=== PATIENT | female | born 1945 | race Caucasian/White ===

== ENCOUNTER 2021-06-05 12:26 | Outpatient (CLI) | payer MEDICARE, SELFPAY ==
--- NOTE | 2021-06-05 | ECG_ITS ---
Measurements Intervals [place] Rate: 70 P: 51 ND: 180 QRS: 64 QRSD: 94 T: 22 QT: 382 QTc: 413 Interpretive Statements SINUS RHYTHM POSSIBLE LEFT ATRIAL ENLARGEMENT INCOMPLETE RIGHT BUNDLE BRANCH BLOCK MINIMAL Q WAVES- INFERIOR LEADS BORDERLINE ST-T WAVE ABNORMALITY- ANTEROLAT/INF LEADS BORDERLINE ECG Electronically Signed On 06-05-2021 13:45:41 ENTRY LEVEL ACCOUNTING CLERK by Demarcus Milner D.O.
--- NOTE | ~2021-06-05 | CT_ITS ---
EXAMINATION: CT LE RT wo con DATE: 06/05/2021 13:05 INDICATION: Unilateral primary osteoarthritis of the right knee TECHNIQUE: High resolution computed tomography (CT) of the right lower limb from the hip through the midfoot was performed without intravenous contrast. Additional sagittal and coronal reconstructions w ere performed. Automated exposure control and iterative reconstruction technique were employed. The d ose-length product was 1669.25 mGy-cm. COMPARISON: Radiographs dated 05/17/2021 FINDINGS: Alignment is normal. No fracture. Tricompartmental osteoarthritis at the right knee with moderate to severe joint space narrowing the medial compartment with subchondral formation and subarticular cystl elva changes along the anterior weightbearing medial femoral condyle. Mild joint space narrowing and s mall marginal osteophytes in the patellofemoral compartment and tiny marginal osteophytes at the late ral compartment. Moderate-sized right knee joint effusion. Scattered atherosclerotic calcifications e xtending caudally from the right common femoral artery and the arteries at the right calf. The uterus is not identified and has likely been surgically resected. Visualized portion of the pelvis is other kimbrough unremarkable. No pathologically enlarged right pelvic or inguinal lymphadenopathy. IMPRESSION: 1. Moderate to severe osteoarthritis at the medial compartment of the right knee. Reviewed, dictated and finalized at location A. LACE TIPPING MACHINE OPERATOR IMPRESSION: 1. Moderate to severe osteoarthritis at the medial compartment of the right kne e.
[2021-06-05 13:44] LABS: Hematocrit 38.4 % (37.0-47.0); Hemoglobin 12.5 g/dL (12.0-15.0)
[2021-06-05 13:52] LABS: Albumin Level 4.6 g/dL (3.5-5.1); Estimated Glomerular Filt Rate > 60; Glucose 126 mg/dL (65-110)
== END 2021-06-05 12:27 | disposition home or self-care (01) ==
PROVIDERS: PCP Internal Medicine Endocrinology, Diabetes & Metabolism; Visit Provider Orthopaedic Surgery
DX: Z01.818 Encounter for other preprocedural examination (principal); M25.561 Pain in right knee; M17.11 Unilateral primary osteoarthritis, right knee; E78.5 Hyperlipidemia, unspecified; Z92.89 Personal history of other medical treatment; I45.10 Unspecified right bundle-branch block; R50.9 Fever, unspecified
CPT/HCPCS: 36415; 73700; 82040; 82565; 82947; 85014; 85018; 93005

== ENCOUNTER 2021-07-18 08:10 | Outpatient (CLI) | payer MEDICARE, SELFPAY ==
[2021-07-18 09:31] LABS: Basophils Percent Auto 0.3 % (0.2-1.2); Eosinophils Absolute Auto 0.1 K/mm3 (0-0.3); Eosinophils Percent Auto 2.4 % (0-4.4); Hematocrit 38.9 % (37.0-47.0); Hemoglobin 12.7 g/dL (12.0-15.0); Immature Granulocyte Absolute 0.01 K/mm3 (0.00-0.031); Immature Granulocyte Percent A 0.2 % (0-0.5); Lymphocytes Absolute Auto 1.84 K/mm3 (0.9-3.2); Lymphocytes Percent Auto 31.5 % (18.3-44.2); Mean Corpuscular HGB Conc 32.6 g/dl (32-36); Mean Corpuscular Hemoglobin 29.7 pg (26-34); Mean Corpuscular Volume 91.1 fl (80-100); Mean Platelet Volume 10.2 fl (7.4-10.4); Monocytes Absolute Auto 0.4 K/mm3 (0.1-0.6); Monocytes Percent Auto 6.7 % (2.6-8.5); Neutrophils Absolute Auto 3.4 K/mm3 (1.3-6.7); Neutrophils Percent Auto 58.9 % (45.5-73.1); Platelet Count Result 231 k/mm3 (150-375); Red Blood Count 4.27 M/mm3 (4.2-5.4); Red Cell Distribution Width 12.4 % (11.5-14.5); White Blood Count 5.8 K/mm3 (4.5-10.0)
[2021-07-18 09:39] LABS: Urine Cotinine NEGATIVE
[2021-07-18 09:45] LABS: Albumin Level 4.9 g/dL (3.5-5.1)
[2021-07-18 09:48] LABS: Anion Gap 7 mmol/L (8-16); Blood Urea Nitrogen 21 mg/dL (7-17); Calcium 9.7 mg/dL (8.4-10.2); Carbon Dioxide 30 mmol/L (22-30); Chloride 103 mmol/L (98-107); Estimated Glomerular Filt Rate > 60; Glucose 107 mg/dL (65-110); Potassium 3.9 mmol/L (3.4-5.0); Sodium 140 mmol/L (137-145)
[2021-07-18 09:50] LABS: Hemoglobin A1C 5.7 % (<5.7)
== END 2021-07-18 08:11 | disposition home or self-care (01) ==
PROVIDERS: Anesthesiology; PCP Internal Medicine Endocrinology, Diabetes & Metabolism; Visit Provider Orthopaedic Surgery
DX: Z01.818 Encounter for other preprocedural examination (principal); M17.11 Unilateral primary osteoarthritis, right knee; E11.9 Type 2 diabetes mellitus without complications
CPT/HCPCS: 80048; 80307; 82040; 83036; 85025; 87081

== ENCOUNTER 2021-08-09 00:40 | Day surgery (SDC) | payer MEDICARE, SELFPAY ==
--- NOTE | 2021-07-18 07:48 | PC.NURSE ---
Report to the Outpatient Waiting Room, entrance under the green pavilion located off [facility], at time _0600_ on date _08/09/21_. OR Time: _0730_. - You and your visitor will be asked a series of questions to screen for COVID 19 for your protection. - A mask is required within the hospital. One visitor will be allowed to accompany the patient into the hospital. Patients visitor will be instructed to remain with patient at all times or leave the building. VISITING HOURS 10AM - 7PM, ONE VISITOR DAILY, USE BRISA ENTRANCE Preoperative COVID Testing Requirements: NONE Patients may have clear liquids (water, carbonated beverages, clear teas, apple juice) until 3 hours prior to surgery (0430 AM) with a maximum of 20 ounces. - No food from midnight until time of surgery Take the following medications with a SIP of water the morning of surgery: _TYLENOL IF NEEDED_ Medications to discontinue per Mick ELLISON - ASPIRIN, IBUPROFEN 7 DAYS PRIOR TO SURGERY, Date to take last dose 08/01/21_ Medications to discontinue per ANESTHESIA - ALL VITAMINS AND SUPPLEMENTS, Date to take last dose 08/05/21 Please no make-up, nail french, hairspray, perfume, deodorant, or body powder the day of surgery. No jewelry (including any body piercings) or valuables the day of surgery, leave them at home. Please take a shower or bath the night before, or the morning of, surgery with an antibacterial soap. Wear comfortable, loose fitting clothing. - Jewelry must be removed prior to entering the operating room. Rings and piercings that are not removed may be cut off. - The hospital will not accept responsibility for valuables. - Please leave all valuables, including medications, at home the day of surgery. If you are going home after surgery, a licensed truss driver helper must drive you home. - NO public transportation without another adult. - We recommend that an adult stay with you for 24 hours following discharge. - We also recommend that you do not drive, make important decision, drink alcoholic beverages, or take any drugs that were not prescribed by your health care provider for at least 24 hours after your discharge time. Follow any additional instructions given to you from your surgeon. TOTAL JOINT CLASS 07/18/21 @ 1000, [facility] LEVEL, USE BRISA ENTRANCE Instructions given to ____PT and asked if any additional questions and then verbalized understanding. Patient advised to call surgeon office or pre surgery nurse liaisonCHRISTOPH [phone] if any additional questions.
[2021-07-18 08:45] VITALS: BP 140/78; PULSE 82; RESP 18; TEMP 37.2; O2SAT 96; BMI 20.2
--- NOTE | 2021-07-18 08:57 | PC.NURSE ---
Report to the Outpatient Waiting Room, entrance under the green pavilion located off [facility], at time _0600_ on date _08/09/21_. OR Time: _0730_. - You and your visitor will be asked a series of questions to screen for COVID 19 for your protection. - A mask is required within the hospital. One visitor will be allowed to accompany the patient into the hospital. Patients visitor will be instructed to remain with patient at all times or leave the building. We will allow the visitor to come back to the postoperative area when patient is ready. Preoperative COVID Testing Requirements: NONE Patients may have clear liquids (water, carbonated beverages, clear teas, apple juice) until 3 hours prior to surgery (0430 AM) with a maximum of 20 ounces. - No food from midnight until time of surgery Take the following medications with a SIP of water the morning of surgery: _TYLENOL IF NEEDED_ Medications to discontinue per SHEPPERSON - ASPIRIN AND IBUPROFEN 7 DAYS PRIOR TO SURGERY, LAST DOSE TO BE TAKEN ON 08/01/21 Medications to discontinue per ANESTHESIA - ALL VITAMINS AND SUPPLEMENTS 3 DAYS PRIOR TO SURGERY, LAST DOSE TO BE TAKEN ON 08/05/21 Please no make-up, nail trinidadian, hairspray, perfume, deodorant, or body powder the day of surgery. No jewelry (including any body piercings) or valuables the day of surgery, leave them at home. Please take a shower or bath the night before, or the morning of, surgery with an antibacterial soap. Wear comfortable, loose fitting clothing. Children are encouraged to wear pajamas. - Jewelry must be removed prior to entering the operating room. Rings and piercings that are not removed may be cut off. - The hospital will not accept responsibility for valuables. - Please leave all valuables, including medications, at home the day of surgery. If you are going home after surgery, a licensed commercial relief driver must drive you home. - NO public transportation without another adult. - We recommend that an adult stay with you for 24 hours following discharge. - We also recommend that you do not drive, make important decision, drink alcoholic beverages, or take any drugs that were not prescribed by your health care provider for at least 24 hours after your discharge time. Follow any additional instructions given to you from your surgeon. TOTAL JOINT CLASS 07/18/21 @ [address] [place] [address] LOWER LEVEL, USE MAIN ENTRANCE Instructions given to __PT and asked if any additional questions and then verbalized understanding. Patient advised to call surgeon office or pre surgery nurse liaisonCHRISTOPH [phone] if any additional questions.
[2021-08-09] VITALS (14 sets, daily range): BP systolic 101–135; BP diastolic 61–86; PULSE 64–87; RESP 12–20; TEMP 36.1–37; O2SAT 95–100
--- NOTE | ~2021-08-09 | XR_ITS ---
EXAMINATION: XR knee RT 2V DATE: 08/09/2021 10:14 INDICATION: Postoperative evaluation following right total knee arthroplasty. TECHNIQUE: Anteroposterior and lateral views of the right knee were obtained. COMPARISON: 05/17/2021 FINDINGS: Right total knee arthroplasty without patellar resurfacing appears well seated and in near anatomic a lignment. No fractures identified. Expected postoperative subcutaneous and intra-articular gas. IMPRESSION: 1. Right total knee arthroplasty, negative for postoperative purposes. Reviewed, dictated and finalized at location B.
--- NOTE | 2021-08-09 07:02 | WPDANESEPPF ---
Anes - Initial Pre Proc Eval Procedure: Operation Date: 08/09/21 07:30 Proposed Procedures p Custom Right Total Knee Arthroplasty - Johnathan Ruiz MD Date/Time: 08/09/21 07:02 Surgeon: Johnathan Ruiz MD Pre Op Diagnosis: Prim O A Rt Knee Patient Data Age: 76 Gender: F Height: 1.59 m Weight: 49.9 kg Last Vital Signs Temp 37.2 C 07/18/21 08:45 Pulse 82 07/18/21 08:45 Resp 18 07/18/21 08:45 BP 140/78 07/18/21 08:45 Pulse Ox 96 07/18/21 08:45 Allergies Allergy/AdvReac Type Severity Reaction Status Date / Time metoclopramide [From Reglan] AdvReac Agitated Verified 08/09/21 06:50 Home Medications Medication Instructions Recorded Confirmed Type metformin 500 mg tablet,extended 500 mg PO HS 05/17/21 08/09/21 History release 24 hr omeprazole 20 mg capsule,delayed 20 mg PO QAM 05/17/21 08/09/21 History release rosuvastatin 5 mg tablet 5 mg HS 05/17/21 08/09/21 History acetaminophen [Tylenol Ex Str 1,000 mg PO Q6H PRN 07/18/21 08/09/21 History Rapid Release] ascorbic acid (vitamin C) [Vitamin 500 mg PO QAM 07/18/21 08/09/21 History C] aspirin [Aspir-81] 81 mg HS 07/18/21 08/09/21 History biotin 10,000 mcg PO QAM 07/18/21 08/09/21 History cholecalciferol (vitamin D3) 50 mcg PO QAM 07/18/21 08/09/21 History coenzyme Q10 [CoQ-10] 100 mg PO QAM 07/18/21 08/09/21 History cyanocobalamin (vitamin B-12) 1,000 mcg PO QAM 07/18/21 08/09/21 History ibuprofen 800 mg PO Q6H PRN 07/18/21 08/09/21 History multivitamin [Multi-Vitamin] 1 tablet PO QAM 07/18/21 08/09/21 History omega-3 fatty acids-vitamin E 1 cap QAM 07/18/21 08/09/21 History [Fish Oil] Patient hx anesthesia problems: none Family hx anesthesia problems: none Results Review: All pre-operative results and documents have been reviewed as part of the pre-operative evaluation. [facility] Past Medical History Medical History Arthritis Diabetes GERD (gastroesophageal reflux disease) Hyperlipidemia Osteoporosis Surgical History Surgical History History of arthroscopy of right knee (~2020) History of bladder surgery (~2002) History of hysterectomy (~2002) History of tonsillectomy Family History Family History Grandparent Carcinoma of colon Arthritis pain Social History Social History Smoking status: Never smoker Second hand tobacco smoke exposure: No Additional smoking assessment comments: PT DENIES ALL FORMS OF TOBACCO USE Alcohol intake: current Alcohol use details: STATES MAYBE 1 GLASS WINE/MONTH Substance use: never Substance use type: does not use Living arrangements: with family Spiritual care concerns: No Anes - Eval Final PreProcedure Day of Procedure 08/09/21 07:02 Patient weight: normal Heart: regular rate and rhythm Lungs: clear to auscultation Airway: Mallampati scale class II Neurological: alert and oriented Last oral intake: >/= 8 hours ASA classification: III Emergent: no Anesthetic plan: proceed Anesthesia type and monitoring: general LMA and standard monitoring Results Review: All pre-operative results and documents have been reviewed as part of the pre-operative evaluation. Informed Consent: The patient's anesthetic plan and its attendant risks and benefits were discussed with the patient/family/POA. Questions were solicited and answers provided to the satisfaction of the patient/family/POA.
[2021-08-09] MEDS: LACTATED RINGERS 1,000 ML 30 ML IV CONT ×2 (07:05→10:21)
[2021-08-09] MEDS: ACETAMINOPHEN 500 MG TABLET 1000 MG PO (07:08)
[2021-08-09] MEDS: TRANEXAMIC ACID 1,000MG/ISO100 1,000 MG/100 ML BAG 200 MG IVPB (07:09)
[2021-08-09 07:12] LABS: Glucose Point of Care 108 mg/dl (65-105)
[2021-08-09] MEDS: MIDAZOLAM HCL (*CRX) 2 MG/2 ML VIAL IV PUSH (07:15)
--- NOTE | 2021-08-09 07:22 | WPDHPUPDATE1 ---
History and Physical Update Update Date/Time: 08/09/21 07:22 History and Physical has been reviewed, including an updated exam of the patient. There are NO changes in the patient's condition. Risks, benefits, and alternatives have been discussed and questions answered. Patient agrees to proceed with procedure.
[2021-08-09] MEDS: ceFAZolin 2 GM/D5W 50 ML 2 GM/50 ML BAG IVPB ×3 (07:34→23:41)
--- NOTE | 2021-08-09 09:11 | WPDANESPNB ---
Anes - Peripheral Nerve Block Date/Time: 08/09/21 09:11 I have discussed with the patient/family/POA the placement of a peripheral nerve block for post-operative pain management, including associated risks, benefits, complications, and side effects. Alternative methods of post-operative analgesia were detailed. Questions were solicited and answers provided to the satisfaction of the patient/family/POA. Time-Out: A pre-procedural Time-Out was completed immediately before starting the procedure and confirmed: Patient Identification, Site, Procedure, Patient Position and the Availability of Requisite Equipment. Clinical Indications: Acute post-operative pain management requested by the operative surgeon. Nerve Block Insertion Note Anes-nerve block: adductor canal right Patient position: supine Skin prep: chlorhexidine Needle: 22 gauge, stimulating, insulated echogenic needle. Needle length: 80 mm Technique: ultrasound Technique comment: mid2mg [id number] Injectate: bupivacaine 0.5% with epi 5 mcg/ml (30ml no epi) Observations: tolerated well Complications: none Procedure start time:: 713 Procedure end time:: 720
[2021-08-09] MEDS: fentaNYL CITRATE INJ (*CRX) 100 MCG/2 ML VIAL 25 MCG IV PUSH ×6 (10:02→10:54)
[2021-08-09 10:41] LABS: Glucose Point of Care 157 mg/dl (65-105)
--- NOTE | 2021-08-09 11:22 | ADMGEN ---
This patient, Fanta Jimenez, was admitted to 2 Medical Room 243-01. Patient/family oriented to hospital policies and general routines including ID bracelet, bed and alarms, visiting hours, pain management, procedures, bathroom and other care routines, personal items, smoking policy, room service/diet, and visiting hours. Information on how to activate the Rapid Response Team has been discussed. Patient/Family are encouraged to report perceived risks to care and to ask questions if they do not understand what they are told or what they should do.
[2021-08-09] MEDS: oxyCODONE HCL (*CRX) 5 MG TAB IR PO (11:29)
[2021-08-09] MEDS: ONDANSETRON INJ 4 MG/2 ML VIAL IV PUSH (11:46)
[2021-08-09] MEDS: oxyCODONE HCL (*CRX) 5 MG TAB IR 10 MG PO ×2 (15:30→19:37)
--- NOTE | 2021-08-09 16:30 | W.PM.PROC2 ---
Procedure Note - Detailed Date of Procedure 08/09/21 Pre-op Diagnosis Prim O A Rt Knee Post-op Diagnosis Same Procedure Performed Total knee arthroplasty, right. Surgeon Johnathan Ruiz MD Hooker Operator Melissa Arthur PA-C Anesthesia General and Regional (Subsartorial block.) Description of Procedure Preoperative antibiotics were given. The limb was prepped and draped in the usual sterile fashion with a well-padded tourniquet high on the thigh. The limb was exsanguinated and the tourniquet inflated to 300 mmHg during exposure and cementation. A longitudinal incision was created just medial to the patella. A trivector approach to the knee was performed. Arthrotomy was taken down through the joint capsule. No significant releases were initially taken. The femur was exposed and the F1 jig was applied. The coring tool was used to remove the cartilage for the F2 jig to sit flush with the bone. The jig was pinned and the distal cut carefully taken. Caliper measurements confirmed appropriate bony resections according to the preoperative templated plan. The F4 cutting jig for the femur was applied, at the standard rotation. The AP and anterior chamfer cuts were taken. The F5 jig was applied and the posterior chamfer cuts were taken. The tibia was prepared using the T1 jig, after removing cartilage for the jig contact points. Proper alignment was checked with the alignment sabrina. The tibia was cut using the T1u guide. Gap balancing was performed. Gap measurements were taken and the knee was trialed. Excellent alignment and soft tissue balancing was confirmed. The posterior cruciate ligament was recessed along the proximal tibia. The patella appeared healthy and was denervated. Meniscal remnants were removed. The trial components were assembled. Excellent range of motion and proper soft tissue balancing were confirmed throughout the full range of motion. Patellar tracking was excellent. The knee was copiously irrigated periodically throughout the procedure. The real implants were cemented into position. Excess cement was carefully removed. The wound was closed in layers with interrupted #1 Vicryl suture, 2-0 strata fix suture, 0 strata fix suture, 2-0 strata fix suture. Steri-Strips placed on the skin with the knee flexed. Sterile bulky dressing applied. The patient was brought to the recovery room in stable condition. There were no complications. Physician assistant restaurant general manager, Melissa Arthur PA-C, required for surgery; including patient positioning, draping, tissue retraction, maintaining instrument position, cement removal, wound closure, and dressing placement. Implants Conformis Custom total knee arthroplasty. Cemented. Cruciate retaining. 6A insert. Estimated Blood Loss -50.0 Tourniquet Time 24 Drains No Complications No immediate complications Condition Stable Disposition PACU
[2021-08-09] MEDS: MELOXICAM 7.5 MG TABLET PO (17:25)
[2021-08-09] MEDS: ASPIRIN 81 MG ENTERIC TABLET PO (17:25)
[2021-08-09] MEDS: metFORMIN HCL XR 500 MG TAB.SR.24H PO (20:41)
[2021-08-09] MEDS: ROSUVASTATIN 5 MG TABLET PO (20:41)
[2021-08-10 00:52] VITALS: BP 108/59; PULSE 61; RESP 16; TEMP 36.8; O2SAT 97
[2021-08-10] MEDS: oxyCODONE HCL (*CRX) 5 MG TAB IR 10 MG PO ×3 (02:03→10:21)
[2021-08-10 06:46] VITALS: BP 142/72; PULSE 75; RESP 18; TEMP 36.5; O2SAT 99
--- NOTE | 2021-08-10 07:50 | PM.DS ---
DS: Admitting Diagnosis Discharge Date 08/10/21 Admitting Diagnosis OA knee Right DS: Discharge Diagnosis Discharge Diagnosis (1) Status post total right knee replacement: Code(s): Z96.651 - Presence of right artificial knee joint Status: Acute Assessment and Plan: Postop day 1: Right total knee arthroplasty. Patient tolerated procedure well. No complications. Pain manageable with pain medication. No numbness or tingling. We had a lengthy discussion regarding postoperative wound care, limitations, expectations, and exercises. Patient shows good understanding. He has had initial physical therapy and is tolerating it well. DVT prophylaxis: 81 mg baby aspirin b.i.d. for 14 days. Pain medication: Percocet. Meloxicam. Prednisone. Patient has followup appointment with Dr. Ruiz in 3 weeks. DS: Summary Hospital Course Reason for hospitalization: Total knee arthroplasty Hospital Course: Patient tolerated procedure well. Has had initial PT/OT. Status at Discharge Functional status at discharge: uses cane/walker Overall status at discharge: patient is progressing back to baseline Time Spent with Patient Time attestation: Total time spent providing and/or coordinating discharge services: Exam Narrative: Thin female. Resting comfortably in chair. Wearing compression socks bilaterally. Dressing intact with no drainage. Mild swelling. No ecchymosis. No erythema. No hematoma. Range of motion limited due to pain. 5-95. Quad functional. Calf nontender. Neurologic status intact. No varicosities. Distal pulses palpable. DS: Data Data Completed and Pending Labs on day of discharge: Labs from last 24 hours 08/09/21 10:38 POC Capillary Glucose 157 H Discharge Plan Discharge Patient Disposition: Home, Self-Care Discharge Instructions: See green discharge instructions and discharge medication sheet. Patient Instructions: Pain Management (DC), Joint Replacement Surgery (DC), Knee Replacement (DC) Follow-up/Referrals: Melissa Arthur PA [Physician Terrazzo Tile Setter] - Discharge Medications: New aspirin 81 mg tablet,delayed release (DR/EC) 81 mg PO BID 14 Days Qty: 28 RF: 0 prednisone 5 mg tablet 5 mg PO DAILY 21 Days Qty: 21 RF: 0 meloxicam 15 mg tablet 15 mg PO DAILY Qty: 30 RF: 0 oxycodone-acetaminophen 5-325 mg tablet 1 - 2 tablet PO Q4-6H MDD 6 PRN (Reason: pain) Qty: 30 RF: 0 Continued omeprazole 20 mg capsule,delayed release(DR/EC) 20 mg PO QAM RF: 0 metformin 500 mg tablet extended release 24 hr 500 mg PO HS RF: 0 rosuvastatin 5 mg tablet 5 mg HS RF: 0 multivitamin Tablet 1 tablet PO QAM RF: 0 acetaminophen 500 mg Tablet 1,000 mg PO Q6H PRN (Reason: Pain) RF: 0 ascorbic acid (vitamin C) [Vitamin C] 500 mg Tablet 500 mg PO QAM RF: 0 coenzyme Q10 [CoQ-10] 100 mg Capsule 100 mg PO QAM RF: 0 omega-3 fatty acids-vitamin E 1,000 mg Capsule 1 cap QAM RF: 0 cholecalciferol (vitamin D3) 50 mcg (2,000 unit) Capsule 50 mcg PO QAM RF: 0 cyanocobalamin (vitamin B-12) 1,000 mcg Capsule 1,000 mcg PO QAM RF: 0 biotin 5,000 mcg Tablet,Disintegrating 10,000 mcg PO QAM RF: 0 Held aspirin 81 mg Tablet,Delayed Release (Dr/Ec) 81 mg HS RF: 0 Hold Instructions: Resume on 08/24/21. Take twice daily for two weeks then resume 1 a day dose. ibuprofen 200 mg Tablet 800 mg PO Q6H PRN (Reason: Pain) RF: 0 Hold Instructions: Resume on 09/07/21. Hold while taking Meloxicam.
[2021-08-10] MEDS: ceFAZolin 2 GM/D5W 50 ML 2 GM/50 ML BAG IVPB (07:58)
[2021-08-10] MEDS: SENNA/DOCUSATE SODIUM TABLET 2 TAB PO (07:59)
[2021-08-10] MEDS: PANTOPRAZOLE 40 MG TABLET PO (07:59)
[2021-08-10] MEDS: ASPIRIN 81 MG ENTERIC TABLET PO (08:00)
[2021-08-10] MEDS: MELOXICAM 7.5 MG TABLET PO (08:00)
[2021-08-10 10:10] VITALS: BP 141/60; PULSE 86; RESP 17; TEMP 36.6; O2SAT 99
== END 2021-08-10 10:59 | disposition home or self-care (01) ==
LOC: ANHSURGERY 06:16 → ANH2MED 11:08
PROVIDERS: PCP Internal Medicine Endocrinology, Diabetes & Metabolism; Visit Provider Orthopaedic Surgery
PROC: (CPT 27447; principal; 2021-08-09 07:30)
DX: M17.11 Unilateral primary osteoarthritis, right knee (principal); G89.18 Other acute postprocedural pain; E11.9 Type 2 diabetes mellitus without complications; E78.5 Hyperlipidemia, unspecified; K21.9 Gastro-esophageal reflux disease without esophagitis; M81.0 Age-related osteoporosis without current pathological fracture; Z79.84 Long term (current) use of oral hypoglycemic drugs; Z79.82 Long term (current) use of aspirin
CPT/HCPCS: 27447; 64447; 73560; 82948; 97110; 97116; 97161; 97165; 97535; A9270; C1713; C1776; J0131; J0171; J0690; J1100; J1885; J2250; J2270; J2405; J2704; J2795; J3010; J7120

== ENCOUNTER 2021-09-18 11:00 | Outpatient (RCR) | payer MEDICARE, SELFPAY ==
--- NOTE | 2021-08-27 10:35 | PTOPEVAL ---
Thank you for referring Fanta Jimenez to [facility].? The patient is scheduled to be seen for therapy?2 x/week for 6 weeks. Please review, sign, date and return this plan of care KATE. I agree with and certify that the following plan of care is medically necessary. Referring Physician Date Attending Provider: JUAN Burnett Referring Provider: JUAN Burnett Diagnosis s/p right TKR Onset 08/09/21 Subjective Information She arrived with an AD. States Query Text:As Reported By Patient/ it slows her down too much to Family use. She is performing HEP 2x/day. She reports no significant limitations with daily task, walking, steps, ADL's. She has pain mainly at night. Increased pain with increased activities during the day. Reports her limping and stiffness has improved since surgery. Prior activities:dancing, pickle ball Pain Assessment Right Knee(s) Reported Pain Level 1 Pain Description Aching Pain Frequency Acute Lowest Pain Intensity 1 Greatest Pain Intensity 5 Pain Aggravating Factors Prolonged Position Lower Extremity Range of Motion General Lower Extremity Range of Motion Gross Lower Extremity Range of Motion right knee 5-120 dg (supine) Lower Extremity Muscle Strength Testing General Lower Extremity Strength Gross Lower Extremity Strength left hip flex: 4/5, ext: 4-5, abd: 4-5 left knee ext: 4/5, flex: 4/5 ankle DF: 5/5 Posture Standing Position Weight Distribution Decreased Wt.Bear on (R) Additional Posture Comments supine: anterior innominate noted right Palpation Assessment Palpation tenderness medial/lateral right knee joint line, healed incision, patella Special Tests-Lower Extremity Trendelenburg Sign Negative Left,Positive Right Hip Special Test Comments SLS: 28 sec left, 30 sec right Extremity Circumference Assessment Location Right Body Part Knee Site Descriptor (Biggers) inf patella Circumference (cm) 34 Noninvolved Side Circumference (cm) 30 Circumference Comments mid patella: right 37cm, left 35 cm sup patella: right 35 cm, left 3
--- NOTE | 2021-09-07 08:08 | PCPTNOTE ---
Patient called & cancelled scheduled appointment this date due to family emergency.
--- NOTE | 2021-09-18 11:46 | PTOPEVAL ---
Thank you for referring Fanta Jimenez to [facility].?Fatna Avendaño was referred to therapy due to s/p right TKR. She has attended 6 therapy visits from 08/27/21 to 09/18/21. As a result of skilled therapy services she demonstrates improved knee motion, improved LE strength, improved functional mobility, improved edema of knee region and improved pain level. WOMAC:18.75% impaired at eval and 11% impaired at update. Assessment: Fanta Avendaño has achieved/partially achieved her therapy goals at this time. She is compliant with her HEP and performing a general fitness program. Will DC skilled therapy services at this time with recommendations to cont with HEP, walking program and fitness program. Please review, sign, date and return this discharge summary KATE. I agree with and certify that the following plan of care is medically necessary. Referring Physician Date Attending Provider: JUAN Burnett Referring Provider: JUAN Burnett Diagnosis s/p right TKR Onset 08/09/21 Subjective Information She reports her knee pain has Query Text:As Reported By Patient/ significantly improved since Family last treatment. She tolerance with walking, ascending steps, and ADL's. Improved tolerance with shopping and community walking. She reports improved pain at night with ability to sleep. She c/o knee swelling and stiffness. She is alternating ice/heat at home. Pain Assessment Right Knee(s) Reported Pain Level 0 Pain Frequency Acute Lowest Pain Intensity 0 Greatest Pain Intensity 1 Lower Extremity Range of Motion Gross Lower Extremity Range of Motion right knee 0-130 dg (supine) Comments Lower Extremity Muscle Strength Testing Gross Lower Extremity Strength left hip flex: 4+/5, ext: 4+/5 abd: 4-/5 left knee ext: 5/5, flex: 5/5 ankle DF: 5/5 Palpation Assessment Palpation improved tenderness medial/ lateral right knee joint line, healed incision, patella mild scar restriction in inf aspect and tissue tenderness of pes ansurens region Special Tests-Lower Extremity Hip Special Tests Trendelenburg Sign Negative Left,Negative Right Hip Special Test Comments SLS: 28 sec left, 17 sec right Extremity Circumference Assessment Location Right Body Part Knee Site Descriptor ([place]) inf patella Circumference (cm) 32 Noninvolved Side Circumference (cm) 30 Circum
== END 2021-09-18 15:53 | disposition home or self-care (01) ==
LOC: ANHPT 11:00
PROVIDERS: PCP Internal Medicine Endocrinology, Diabetes & Metabolism; Referring Provider Physician Assistant Surgical; Visit Provider Physician Assistant Surgical
DX: Z47.1 Aftercare following joint replacement surgery (principal); Z96.651 Presence of right artificial knee joint
CPT/HCPCS: 97110; 97112; 97140; 97161

== ENCOUNTER 2021-09-25 16:51 | Emergency (ER) | payer MEDICARE, SELFPAY ==
[2021-09-25 17:01] VITALS: BP 123/76; PULSE 90; RESP 18; TEMP 36.3; O2SAT 98
--- NOTE | 2021-09-25 17:08 | ED.SKABFB ---
HPI - Skin/Abscess/Foreign Bdy General Chief complaint: Skin/Abscess/Foreign Body Stated complaint: rash Time Seen by Provider: 09/25/21 17:08 Source: patient Mode of arrival: ambulatory Limitations: no limitations History of Present Illness HPI narrative: Ms. Jimenez is a 76-year-old female patient presenting to the clinic today with complaints of a rash to her chest x1 to 2 days. She reports no new changes in the environment, medication, or foods. States that she has not changed her detergents. Has an itchy raised rash to the left side of her neck and to the anterior chest. She denies any pain. States that the rash itches. No one at home has the same rash. Related Data Home Medications Medication Instructions Recorded Confirmed metformin 500 mg tablet,extended 500 mg PO HS 05/17/21 08/29/21 release 24 hr omeprazole 20 mg capsule,delayed 20 mg PO QAM 05/17/21 08/29/21 release rosuvastatin 5 mg tablet 5 mg HS 05/17/21 08/29/21 acetaminophen 500 mg tablet 1,000 mg PO Q6H PRN Pain 07/18/21 08/29/21 aspirin 81 mg tablet,delayed 81 mg HS 07/18/21 08/29/21 release cholecalciferol (vitamin D3) 50 50 mcg PO QAM 07/18/21 08/29/21 mcg (2,000 unit) capsule coenzyme Q10 100 mg capsule 100 mg PO QAM 07/18/21 08/29/21 (CoQ-10) cyanocobalamin (vitamin B-12) 1,000 mcg PO QAM 07/18/21 08/29/21 1,000 mcg capsule ibuprofen 200 mg tablet 800 mg PO Q6H PRN Pain 07/18/21 08/29/21 multivitamin 1 tablet PO QAM 07/18/21 08/29/21 omega-3 fatty acids-vitamin E 1 cap QAM 07/18/21 08/29/21 1,000 mg capsule Allergies Allergy/AdvReac Type Severity Reaction Status Date / Time metoclopramide [From Reglan] AdvReac Agitated Verified 09/25/21 17:08 Review of Systems Review of Systems: Pertinent positives per HPI. Patient denies any fever, chills, headache, visual changes, dizziness, cough, runny nose, sore throat, shortness of breath, chest pain, palpitations, nausea, vomiting, diarrhea, constipation, abdominal pain, or any urinary issues. [facility] Past Medical History Medical History Arthritis Diabetes GERD (gastroesophageal reflux disease) Hyperlipidemia Osteoporosis Surgical History Surgical History History of arthroscopy of right knee (~2020) History of bladder surgery (~2002) History of hysterectomy (~2002) History of tonsillectomy History of total right knee replacement (~08/09/21) Conformis Family History Family History Grandparent Carcinoma of colon Arthritis pain Social History Social History Smoking status: Never smoker Second hand tobacco smoke exposure: No Additional smoking assessment comments: PT DENIES ALL FORMS OF TOBACCO USE Alcohol intake: never Alcohol use details: STATES MAYBE 1 GLASS WINE/MONTH Substance use: never Substance use type: does not use Spiritual care concerns: No Exam Narrative: General: Well-developed, well nourished, in no apparent distress Head: Normocephalic, atraumatic. Cardio: Regular rate and rhythm, s1 and s2 normal, no murmur appreciated. Resp: Clear to auscultation bilaterally, no rhonchi, rales, wheezing or rubs. Integumentary: [place], warm, and dry, intact without lesion, mildly raised, red, itchy, papular, semicircular rash without central clearing to the right side of her neck, right anterior chest Course Course Emergency Course: This electronic medical record was dictated using voice recognition software and may contain some grammatical errors. Level of Care: Express Care Visit Vital Signs Vital signs: Vital signs reviewed MDM - Skin/Abscess/Foreign Bdy MDM Narrative Medical decision making narrative: At the time of assessment patient is resting comfortably on the exam table. She has a itc
== END 2021-09-25 17:19 | disposition home or self-care (01) ==
PROVIDERS: Emergency Provider Nurse Practitioner Family; PCP Internal Medicine Endocrinology, Diabetes & Metabolism
DX: L30.9 Dermatitis, unspecified (principal); M19.90 Unspecified osteoarthritis, unspecified site; E11.9 Type 2 diabetes mellitus without complications; K21.9 Gastro-esophageal reflux disease without esophagitis; E78.5 Hyperlipidemia, unspecified; M81.0 Age-related osteoporosis without current pathological fracture; Z96.651 Presence of right artificial knee joint
CPT/HCPCS: 99213; G0463

== ENCOUNTER 2022-01-28 08:33 | Outpatient (CLI) | payer MEDICARE, SELFPAY ==
--- NOTE | ~2022-01-28 | MM_ITS ---
EXAMINATION: MM screening deyanira BI w germain HISTORY: Screening mammogram TECHNIQUE: Craniocaudal and mediolateral oblique 3-D tomosynthesis images were obtained and synthetic 2-D images were generated. CAD analysis was submitted and interpreted. COMPARISON: No prior mammogram is available for comparison at this institution. BREAST PARENCHYMAL COMPOSITION: The breasts are heterogeneously dense, which may obscure small masses . FINDINGS: There is no evidence of suspicious mass, calcification, or architectural distortion to sugg est malignancy in either breast. There has been no suspicious interval change. IMPRESSION: 1. No mammographic evidence of malignancy. 2. Recommend routine screening mammography in one year. BI-RADS Category 1: Negative Reviewed, dictated and finalized at location A.
== END 2022-01-28 08:34 | disposition home or self-care (01) ==
LOC: ANHIMG 08:35
PROVIDERS: PCP Internal Medicine Endocrinology, Diabetes & Metabolism; Visit Provider Internal Medicine Endocrinology, Diabetes & Metabolism
DX: Z12.31 Encounter for screening mammogram for malignant neoplasm of breast (principal)
CPT/HCPCS: 77063; 77067

== ENCOUNTER 2022-02-11 09:55 | Outpatient (CLI) | payer MEDICARE, SELFPAY ==
--- NOTE | ~2022-02-11 | DEXA_ITS ---
Bone Density Report Name: [place]O [facility] Age: 76 Sex: Female Ethnicity: White Date of : 1945 Indication: postmenopausal; screening for osteoporosis; hysterectomy; Referring Provider: HARMEET, ASIA Study: Bone densitometry was performed. Exam Date: February 11, 2022 Accession number: [id number] Bone Density: Region BMD T-score Z-score Classification AP Spine(L1-L4) 0.972 -0.7 1.7 Normal Femoral Neck (Left) 0.564 -2.6 -0.5 Osteoporosis Total Hip (Left) 0.723 -1.8 0.0 Osteopenia Femoral Neck (Right) 0.591 -2.3 -0.2 Osteopenia Total Hip (Right) 0.792 -1.2 0.6 Osteopenia Total Hip Mean 0.757 -1.5 0.3 Osteopenia World Health Organization criteria for BMD impression classify patients as: Normal (T-score at or above -1.0), Osteopenia (T-score between -1.0 and -2.5), or Osteoporosis (T-score at or below -2.5). 10-year Fracture Risk: FRAX not reported because: Some T-score for Spine Total or Hip Total or Femoral Neck at or below -2.5 Clinical Information Provided by Patient: Has used the following medications: Vitamin D Has the following medical conditions: Hysterectomy Patient maximum height was 54 Menopause Age: 56 Drinks caffeinated beverages Onset of menses at age 17 Number of children 3 Impression: The patient has osteoporosis, based on the Left Femoral Neck T-score. Discussion: INCREASED RISK OF FRACTURE. BONE DENSITY IS UNDESIRABLY LOW AT ONE OR MORE SKELETAL SITES, CONSISTENT WITH POSTMENOPAUSAL OSTEOPOROSIS. This patient's lowest T-score meets the World Health Organization's (WHO) criteria for osteoporosis at one or more sites (T-score -2.5 or below). In untreated patients, the risk of osteoporotic fracture increases approximately two-fold for each 1.0 SD decrease in T-score. Low bone density is not the only risk factor for fracture; also consider factors such as patient's age, frailty or poor health, risk of falling, risk of injury, previous osteoporotic fracture, family history of osteoporosis, cigarette smoking, low body weight, etc. Not everyone with low bone mineral density has osteoporosis; osteomalacia and other metabolic bone disorders should also be considered. Patients who have osteoporosis should be evaluated for specific diseases and conditions (secondary causes) that may cause or contribute to bone loss. The [place] [employer] Endocrinologists (AACE) and National Osteoporosis Foundation (NOF) recommend pharmacologic intervention for all postmenopausal women whose T-score is in this range. The patient should follow a healthful lifestyle (good nutrition with adequate calcium and vitamin D, and appropriate weight-bearing exercise). Follow-Up: Consider a repeat BMD and Vertebral Fracture Assessment (VFA) exam in 2 years or sooner if medically necessary,
== END 2022-02-11 09:56 | disposition home or self-care (01) ==
LOC: ANHIMG 09:56
PROVIDERS: PCP Internal Medicine Endocrinology, Diabetes & Metabolism; Visit Provider Nurse Practitioner Family
DX: Z78.0 Asymptomatic menopausal state (principal); M81.0 Age-related osteoporosis without current pathological fracture; M85.851 Other specified disorders of bone density and structure, right thigh; M85.852 Other specified disorders of bone density and structure, left thigh
CPT/HCPCS: 77080

== ENCOUNTER 2022-06-20 13:10 | Outpatient (CLI) | payer MEDICARE, SELFPAY ==
[2022-06-20 13:29] LABS: Basophils Percent Auto 0.2 % (0.2-1.2); Eosinophils Absolute Auto 0.2 K/mm3 (0-0.3); Hematocrit 39.4 % (37.0-47.0); Hemoglobin 12.8 g/dL (12.0-15.0); Immature Granulocyte Absolute 0.01 K/mm3 (0.00-0.031); Immature Granulocyte Percent A 0.2 % (0-0.5); Lymphocytes Absolute Auto 1.42 K/mm3 (0.9-3.2); Mean Corpuscular HGB Conc 32.5 g/dl (32-36); Mean Corpuscular Hemoglobin 29.5 pg (26-34); Mean Corpuscular Volume 90.8 fl (80-100); Mean Platelet Volume 9.7 fl (7.4-10.4); Monocytes Absolute Auto 0.3 K/mm3 (0.1-0.6); Monocytes Percent Auto 7.2 % (2.6-8.5); Neutrophils Absolute Auto 2.8 K/mm3 (1.3-6.7); Neutrophils Percent Auto 58.4 % (45.5-73.1); Platelet Count Result 219 k/mm3 (150-375); Red Blood Count 4.34 M/mm3 (4.2-5.4); Red Cell Distribution Width 12.5 % (11.5-14.5); White Blood Count 4.7 K/mm3 (4.5-10.0)
[2022-06-20 13:46] LABS: CRP 0.6 mg/dL (<1.0)
[2022-06-20 13:55] LABS: Erythrocyte Sedimentation Rate 14 mm/hr (0-20)
== END 2022-06-20 13:11 | disposition home or self-care (01) ==
PROVIDERS: PCP Internal Medicine Endocrinology, Diabetes & Metabolism; Visit Provider Orthopaedic Surgery
DX: M25.561 Pain in right knee (principal); Z96.651 Presence of right artificial knee joint; Z47.1 Aftercare following joint replacement surgery
CPT/HCPCS: 36415; 85025; 85652; 86140

== ENCOUNTER 2022-11-17 22:01 | Inpatient (IN) | payer MEDICARE, SELFPAY ==
[2022-11-17] VITALS (13 sets, daily range): BP systolic 130–158; BP diastolic 75–110; PULSE 67–104; RESP 13–28; TEMP 36.5; O2SAT 91–99
--- NOTE | ~2022-11-17 | XR_ITS ---
Supine portable views of the abdomen Clinical history: Small bowel obstruction COMPARISON: 11/18/2022 Findings: NG tube is in satisfactory position. Bowel gas pattern is nonspecific. No evidence for obst ruction or free air. No abnormal mass lesion or calcification is seen. Stable levoscoliosis of the eliezer mbar spine. Impression: NG tube in place. Nonspecific bowel gas pattern. Reviewed, dictated and finalized at location . Impression: NG tube in place. Nonspecific bowel gas pattern.
--- NOTE | ~2022-11-17 | XR_ITS ---
XR abdomen NG/feed tube rechec DATE: 11/18/2022 16:20 INDICATION: NG tube confirmation TECHNIQUE: Portable upright AP view on 11/18/2022 at 1618 hours COMPARISON: 11/18/2022 KUB at 1250 hours FINDINGS: The NG tube is unchanged in position, making a loop in the lower stomach and progressing ba ck into the gastric fundus. Heart size appears normal. The lungs appear clear. No pleural effusion or pulmonary vascular congesti on or pneumothorax is evident. Status post lower cervical spine surgical fusion. IMPRESSION: NG tube in stomach, not significant changed in position since earlier today Reviewed, dictated and finalized at Location A. Reviewed, dictated and finalized at location B. IMPRESSION: NG tube in stomach, not significant changed in position since [facility] today
--- NOTE | ~2022-11-17 | XR_ITS ---
EXAMINATION: XR sm bowel follow through WS DATE: 11/19/2022 10:19 INDICATION: Small bowel obstruction. TECHNIQUE: Oral contrast was administered, and a time course of radiographs of the abdomen was obtain ed. Fluoroscopy of the small bowel was performed. Fluoroscopy exposure time was 0.1 minutes. The tota l number of images was 5. COMPARISON: CT abdomen and pelvis 11/17/2022 FINDINGS: The nasogastric tube tip is in the stomach. There are no dilated loops of bowel. Transit time from th e stomach to proximal colon was approximately 15 minutes. IMPRESSION: 1. Nonobstructive bowel gas pattern. Reviewed, dictated and finalized at location A.
--- NOTE | ~2022-11-17 | XR_ITS ---
EXAM: XR abdomen NG/feed tube rechec DATE: 11/18/2022 17:31 HISTORY: NG tube confirmation . COMPARISON: Same date at 4:18 PM. FINDINGS: Partially visualized cervical fusion hardware. NG tube tip and side port project over the gastric fundus, the previous loop has been significantly reduced. Clear lung bases. Emphysematous reza nge. Normal upper abdominal bowel gas pattern. No organomegaly. No abnormal abdominal calcification. Lumbar scoliosis. Degenerative changes in the spine. IMPRESSION: NG tube, in good position. Reviewed, dictated and finalized at location K. IMPRESSION: NG tube, in good position.
--- NOTE | ~2022-11-17 | CT_ITS ---
CT of the Abdomen and Pelvis: Indication: Abdominal pain Technique: 2.5 mm axial scans were obtained through the abdomen and pelvis following intravenous adm inistration of 100 cc of Omnipaque 350. Dose reduction technique was used on this scan by utilizing a utomated exposure control and iterative reconstruction technique. The dose-length product (DLP) was 2 52.71 mGy-cm. Findings: Scans through the lung bases are unremarkable. The liver, spleen, pancreas, gallbladder, adrenals and kidneys are within normal limits. No evidence of aortic aneurysm. No lymphadenopathy. There are several mildly dilated small bowel loops in the left midabdomen, lateral to the descending colon. Images through the pelvis were performed. Urinary bladder unremarkable. Patient is post hysterectomy. No pelvic mass seen. No ascites. Impression: Suspected early or partial small bowel obstruction, with dilated small bowel loops in the left midabd omen, lateral to the descending colon. Position of small bowel loops lateral to the descending colon raises the possibility of internal transmesenteric hernia. Correlate clinically. Consider surgical co nsultation. Reviewed, dictated and finalized at location . Impression: Suspected early or partial small bowel obstruction, with dilated small bowel lo ops in the left midabdomen, lateral to the descending colon. Position of small bowel loops lateral to the descending colon raises the possibility of internal transmesenteric hernia. Correlate clinically. Consider surgical consultation.
--- NOTE | ~2022-11-17 | XR_ITS ---
Portable upright view of the abdomen Clinical history: NG tube placement Findings: NG tube in satisfactory position. Bowel gas pattern is nonspecific. No evidence for obstruc tion or free air. No abnormal mass lesion or calcification is seen. Osseous structures are intact. Impression: NG tube in satisfactory position. Reviewed, dictated and finalized at location . Impression: NG tube in satisfactory position.
[2022-11-17 22:24] LABS: Appearance Urine Clear (Clear); Basophils Percent Auto 0.4 % (0.2-1.2); Bilirubin Urine Negative (Negative); Blood Urine Negative (Negative); Color Urine Yellow (Yellow); Eosinophils Absolute Auto 0.4 K/mm3 (0-0.3); Eosinophils Percent Auto 3.3 % (0-4.4); Glucose Urine UA Negative (Negative); Hematocrit 41.6 % (37.0-47.0); Hemoglobin 13.6 g/dL (12.0-15.0); Immature Granulocyte Absolute 0.02 K/mm3 (0.00-0.031); Immature Granulocyte Percent A 0.2 % (0-0.5); Ketones Urine Negative (Negative); Leukocyte Esterase Ur Negative LEU/UL (Negative); Lymphocytes Percent Auto 29.7 % (18.3-44.2); Mean Corpuscular HGB Conc 32.7 g/dl (32-36); Mean Corpuscular Hemoglobin 29.6 pg (26-34); Mean Corpuscular Volume 90.6 fl (80-100); Mean Platelet Volume 10.2 fl (7.4-10.4); Monocytes Absolute Auto 0.9 K/mm3 (0.1-0.6); Monocytes Percent Auto 8.1 % (2.6-8.5); Neutrophils Absolute Auto 6.3 K/mm3 (1.3-6.7); Neutrophils Percent Auto 58.3 % (45.5-73.1); Nitrate Urine Negative (Negative); Platelet Count Result 270 k/mm3 (150-375); Protein Urine Negative (Negative); Red Blood Count 4.59 M/mm3 (4.2-5.4); Red Cell Distribution Width 12.5 % (11.5-14.5); Specific Grav Ur 1.004 (1.001-1.035); Urobilinogen Urine 0.2 mg/dL (<2.0); White Blood Count 10.8 K/mm3 (4.5-10.0); pH Urine 6.5 (5.0-9.0)
[2022-11-17 22:28] LABS: Add Urine Microscopic? NO
[2022-11-17 22:37] LABS: Lactic Acid Reflex 1.8 mmol/L (0.7-2.0)
[2022-11-17 22:38] LABS: Alanine Aminotransferase 23 U/L (6-35); Albumin Level 5.2 g/dL (3.5-5.1); Alkaline Phosphatase 102 U/L (38-126); Anion Gap 10 mmol/L (8-16); Aspartate Amino Transferase 31 U/L (14-36); Bilirubin,Total 0.4 mg/dL (0.2-1.3); Blood Urea Nitrogen 21 mg/dL (7-17); Calcium 10.3 mg/dL (8.4-10.2); Carbon Dioxide 29 mmol/L (22-30); Chloride 101 mmol/L (98-107); Estimated CRCL calculation 48 ml/min; Estimated Glomerular Filt Rate > 60; Glucose 144 mg/dL (65-110); Lipase 127 U/L (23-300); Potassium 4.7 mmol/L (3.4-5.0); Sodium 140 mmol/L (137-145)
[2022-11-17] MEDS: ONDANSETRON INJ 4 MG/2 ML VIAL IV PUSH (22:39)
[2022-11-17] MEDS: MORPHINE SULFATE (*CRX) 4 MG/ML INJ IV PUSH (22:39)
--- NOTE | 2022-11-17 22:47 | ED.ABDPAIN ---
HPI - Abdominal Pain General Chief Complaint: Abdominal Pain <Irene Watkins PA-C - Last Filed: 11/18/22 01:31> Stated Complaint: abdominal pain <AUDREY Ignacio Last Filed: 11/18/22 01:31> Time Seen by Provider: 11/17/22 22:14 <Irene Watkins PA-C - Last Filed: 11/18/22 01:31> Source: patient <AUDREY Ignacio Last Filed: 11/18/22 01:31> Mode of arrival: ambulatory <AUDREY Ignacio Last Filed: 11/18/22 01:31> Limitations: no limitations <AUDREY Ignacio Last Filed: 11/18/22 01:31> History of Present Illness HPI narrative: This is a 77-year-old female that presents to the emergency department for abdominal pain ongoing over the last several hours. Reports sharp abdominal pain associated with bloating. Reports she has history of diverticulitis with perforation. She has had a partial colectomy. She has also had several obstructions. Reports some nausea. Denies fever, vomiting, diarrhea, or dysuria. <Irene Watkins PA-C - Last Filed: 11/18/22 01:31> Related Data Home Medications: Home Medications Medication Instructions Recorded Confirmed omeprazole 20 mg capsule,delayed 20 mg PO QAM 05/17/21 11/18/22 release acetaminophen 500 mg tablet 1,000 mg PO Q6H PRN Pain 07/18/21 11/18/22 aspirin 81 mg tablet,delayed 81 mg DAILY 07/18/21 11/18/22 release cholecalciferol (vitamin D3) 50 50 mcg PO QAM 07/18/21 11/18/22 mcg (2,000 unit) capsule cyanocobalamin (vitamin B-12) 1,000 mcg PO QAM 07/18/21 11/18/22 1,000 mcg capsule ibuprofen 200 mg tablet 800 mg PO Q6H PRN Pain 07/18/21 11/18/22 multivitamin 1 tablet PO QAM 07/18/21 11/18/22 tramadol 50 mg tablet 50 mg PO Q6-8H PRN Pain 11/18/22 11/18/22 <Irene Watkins PA-C - Last Filed: 11/18/22 01:31> Allergies/Adverse Reactions: Allergies Allergy/AdvReac Type Severity Reaction Status Date / Time metoclopramide [From Reglan] AdvReac Agitated Verified 10/17/22 11:39 <Irene Watkins PA-C - Last Filed: 11/18/22 01:31> Review of Systems Review of Systems: CONSTITUTIONAL: Denies fever GASTROINTESTINAL: Reports abdominal pain, nausea. Denies vomiting, or diarrhea. GENITOURINARY: Denies dysuria <Irene Watkins PA-C - Last Filed: 11/18/22 01:31> All systems reviewed & are unremarkable except as noted in HPI and below <Irene Watkins PA-C - Last Filed: 11/18/22 01:31> [facility] Past Medical History Medical History: Medical History (Updated 11/18/22 @ 02:30 by Kelley Lehman MD) Arthritis Diabetes GERD (gastroesophageal reflux disease) Hyperlipidemia Osteoporosis <Irene Watkins PA-C - Last Filed: 11/18/22 01:31> Surgical History Surgical History: Surgical History History of arthroscopy of right knee (~2020) History of bladder surgery (~2002) History of hysterectomy (~2002) History of tonsillectomy History of total right knee replacement (~08/09/21) Conformis <Irene Watkins PA-C - Last Filed: 11/18/22 01:31> Family History Family History: Family History Grandparent Carcinoma of colon Arthritis pain <Irene Watkins PA-C - Last Filed: 11/18/22 01:31> Social History Social History: Social History Smoking status: Never smoker Second hand tobacco smoke exposure: No Additional smoking assessment comments: PT DENIES ALL FORMS OF TOBACCO USE Alcohol intake: never Alcohol use details: STATES MAYBE 1 GLASS WINE/MONTH Substance use: never Substance use type: does not use Lack of Transportation: No Lack of Food: Never True Current Housing: I Have Housing Concerned About Future Housing: No Difficulty Paying Gas/Electric Bills: No Difficulty Paying for Meds: No Currently Unemployed: No Education: High School Diploma/GED Difficulty w/ Childc
[2022-11-18 00:17] VITALS: BP 136/80; PULSE 71; RESP 16; O2SAT 97
--- NOTE | 2022-11-18 01:23 | PM.IMHP ---
H&P: HPI History of Present Illness Date/Time: 11/18/22 01:23 Chief Complaint: abdominal pain Narrative: This is a 77-year-old female with past medical history significant for partial colectomy, small-bowel obstruction x2, patient presents to the emergency room due to sudden onset abdominal pain has been her usual state of health up until later in the day when she developed abdominal pain after dinner had normal bowel movement during the day and everything seemed to be going as usual. Denies any nausea, or vomiting, tried a suppository and had a small bowel movement but did not improve her pain or resolve the pain. preliminary workup was significant for CT of abdomen and pelvis was found for small-bowel obstruction. patient has been admitted for further evaluation management and treatment. Review of Systems Review of Systems: abdominal pain. Constitutional: Constitutional: Denies chills, Denies fever(s), Denies malaise and Denies night sweats Eyes: Eyes: Denies change in vision ENT: Denies dysphagia and Denies odynophagia Cardiovascular: Cardiovascular: Denies chest pain, Denies radiating jaw, neck or arm pain and Denies palpitations Respiratory: Respiratory: Denies chest congestion, Denies excessive phlegm production, Denies dyspnea and Denies dyspnea on exertion Gastrointestinal: Gastrointestinal: Reports abdominal pain, Denies dyspepsia, Denies heartburn, Denies diarrhea, Denies nausea and Denies vomiting Genitourinary: Genitourinary: Reports no additional female genitourinary complaints Musculoskeletal: Musculoskeletal: Denies myalgias and Denies arthralgias Integumentary/Breasts: Skin/Breast: Denies rash Neurologic: Denies focal weakness and Denies Sensory deficit (Neuro) Psychiatric: Psychiatric: Reports no additional psychiatric complaints and Reports as per HPI Endocrine: Endocrine: Denies cold intolerance, Denies flushing, Denies heat intolerance, Denies polyphagia, Denies polydipsia and Denies palpitations Hematologic/Lymphatic: Hematologic/Lymphatic: Reports no additional hematologic/lymphatic complaints and Reports as per HPI Allergic/Immunologic: Allergic/Immunologic: Reports no additional allergic/immunologic complaints and Reports as per HPI PMFSH Past Medical History Medical History (Updated 11/18/22 @ 02:30 by Kelley Lehman MD) Arthritis Diabetes GERD (gastroesophageal reflux disease) Hyperlipidemia Osteoporosis Surgical History Surgical History History of arthroscopy of right knee (~2020) History of bladder surgery (~2002) History of hysterectomy (~2002) History of tonsillectomy History of total right knee replacement (~08/09/21) Conformis Family History Family History Grandparent Carcinoma of colon Arthritis pain Social History Social History Smoking status: Never smoker Second hand tobacco smoke exposure: No Additional smoking assessment comments: PT DENIES ALL FORMS OF TOBACCO USE Alcohol intake: never Alcohol use details: STATES MAYBE 1 GLASS WINE/MONTH Substance use: never Substance use type: does not use Lack of Transportation: No Lack of Food: Never True Current Housing: I Have Housing Concerned About Future Housing: No Difficulty Paying Gas/Electric Bills: No Difficulty Paying for Meds: No Currently Unemployed: No Education: High School Diploma/GED Difficulty w/ Childcare or Family Care: No Living arrangements: with family Spiritual care concerns: No Meds Home Medications and Allergies Home Medications Medication Instructions Recorded Confirmed Type omeprazole 20 mg capsule,delayed 20 mg PO QAM 05/17/21 06/19/22 History release acetaminophen 500 mg tablet 1,000 mg PO Q6H PRN Pain 07/18/21 06/19/22 History aspirin 81 mg tablet,delayed 81 mg HS 07/03
--- NOTE | 2022-11-18 01:32 | PC.NURSE ---
Hospitalist consulted and advised this RN to hold-off on NG placement until further notice.
[2022-11-18 02:24] VITALS: BMI 20.2
--- NOTE | 2022-11-18 02:31 | ADMGEN ---
This patient, Fanta Jimenez, was admitted to [facility] Surg Room 325-02. Patient/family oriented to hospital policies and general routines including ID bracelet, bed and alarms, visiting hours, pain management, procedures, bathroom and other care routines, personal items, smoking policy, room service/diet, and visiting hours. Information on how to activate the Rapid Response Team has been discussed. Patient/Family are encouraged to report perceived risks to care and to ask questions if they do not understand what they are told or what they should do.
[2022-11-18 02:33] VITALS: BP 170/93; PULSE 97; RESP 16; TEMP 36.2; O2SAT 99
[2022-11-18] MEDS: SODIUM CHLORIDE 0.9% IV 1,000 ML 125 ML IV CONT (03:01)
[2022-11-18] MEDS: HYDROmorphone HCL INJ (*CRX) 1 MG/ML SYR IV PUSH (03:31)
[2022-11-18 05:18] VITALS: BP 149/70; PULSE 81; RESP 16; TEMP 36.6; O2SAT 98
[2022-11-18] MEDS: ONDANSETRON INJ 4 MG/2 ML VIAL IV PUSH ×3 (06:08→18:35)
[2022-11-18] MEDS: HYDROmorphone HCL INJ (*CRX) 1 MG/ML SYR 0.5 MG IV PUSH (06:16)
[2022-11-18 08:00] VITALS: PULSE 81; RESP 16; O2SAT 98
[2022-11-18] MEDS: DEXTROSE 5%/LACTATED RINGERS 1,000 ML 75 ML IV CONT (12:00)
--- NOTE | 2022-11-18 12:44 | PC.NURSE ---
NG inserted by Dr Reinoso at bedside at 1240pm. x-ray on floor getting KUB 1248pm
[2022-11-18 14:00] VITALS: BP 154/96; PULSE 104; RESP 16; TEMP 36.6; O2SAT 98
[2022-11-18] MEDS: PHENOL/SOD PHENO SPRAY CHERRY (*BKC) 1 SPRAY MUCOUS MEM (15:31)
--- NOTE | 2022-11-18 15:51 | PM.IMPN ---
Progress Note: A&P Assessment and Plan (1) SBO (small bowel obstruction): Code(s): K56.609 - Unspecified intestinal obstruction, unspecified as to partial versus complete obstruction Status: Acute Assessment and Plan: admit to regular medical floor strict NPO supportive care surgery consult follow surgery recommendations (2) Osteoporosis: Code(s): M81.0 - Age-related osteoporosis without current pathological fracture Status: Acute Assessment and Plan: follow-up in outpatient setting (3) Arthritis: Code(s): M19.90 - Unspecified osteoarthritis, unspecified site Status: Acute Assessment and Plan: follow-up in outpatient setting (4) GERD (gastroesophageal reflux disease): Code(s): K21.9 - Gastro-esophageal reflux disease without esophagitis Status: Acute Assessment and Plan: PPI Plan 11/18/2022: Patient presented with abdominal pain since 1 day with associated nausea vomiting. History of partial colectomy for diverticulitis with perforation in the past. Mild leukocytosis stent K UA is negative lactate is normal CT scan abdomen pelvis with prominent small bowel measuring up to 2.8 cm with mild wall thickening. Early/partial small bowel obstruction. General surgery consulted. NG tube has been placed. She wants to avoid that she feels a bit better today. If he continues to have nausea and vomiting need to place NG tube. No return of bowel function continue IV fluid as ordered labs reviewed Subjective Date/time seen: 11/18/22 15:51 Interval history: Patient presented with abdominal pain since 1 day with associated nausea vomiting. History of partial colectomy for diverticulitis with perforation in the past. Mild leukocytosis stent K UA is negative lactate is normal CT scan abdomen pelvis with prominent small bowel measuring up to 2.8 cm with mild wall thickening. Early/partial small bowel obstruction. General surgery consulted. NG tube has been placed. She wants to avoid that she feels a bit better today. If he continues to have nausea and vomiting need to place NG tube. No return of bowel function continue IV fluid as ordered labs reviewed Review of Systems Review of Systems: All systems reviewed & are unremarkable except as noted in HPI and below Exam Narrative: GENERAL: Well-appearing, well-nourished, and in no acute distress. HEAD: Normocephalic, atraumatic. EYES: EOMI. CHEST: Clear to auscultation. No respiratory distress. No wheezes rales or rhonchi HEART: Regular rate and rhythm. No murmur heard. Normal peripheral pulses. ABDOMEN: Normal active bowel sounds.? Patient is mildly distended with tenderness to palpation throughout the abdomen.? No guarding EXTREMITIES: Normal range of motion. No edema. SKIN: Warm, dry, no rash. NEURO: No focal deficits. Alert and oriented x3. PSYCH: Normal mood and affect Objective Data Vital Signs Vital Signs: Vital Signs - 24 hr 11/17/22 22:04 11/17/22 22:16 11/17/22 22:30 Temperature 97.7 F Pulse Rate 104 H 95 78 Respiratory Rate 18 15 14 Blood Pressure 158/86 H Pulse Oximetry 99 99 Oxygen Delivery Room Air 11/17/22 22:39 11/17/22 22:45 11/17/22 22:46 Temperature Pulse Rate 80 72 72 Respiratory Rate 15 13 13 Blood Pressure 130/110 H 158/84 H 149/79 H Pulse Oximetry 98 98 91 Oxygen Delivery 11/17/22 22:47 11/17/22 23:00 11/17/22 23:01 Temperature Pulse Rate 70 67 69 Respiratory Rate 28 H 14 13 Blood Pressure 153/75 H Pulse Oximetry 99 97 94 Oxygen Delivery 11/17/22 23:15 11/17/22 23:16 11/17/22 23:30 Temperature Pulse Rate 72 70 91 Respiratory Rate 16 18 17 Blood Pressure 142/85 H Pulse Oximetry 97 96 97 Oxygen Delivery 11/17/22 23:45 11/18/22 00:17 11/18/22 02:33 Temperature 97.1 F L Pulse Rate 75 71 97 Respiratory Rate 18 16 16 Blood Pressure 136/80 170/93 H Pulse Oximetry 97 97 99 Oxygen Delivery 11/18/22
--- NOTE | 2022-11-18 19:17 | PM.CNGS ---
Assessment and Plan Assessment and plan (1) SBO (small bowel obstruction): Code(s): K56.609 - Unspecified intestinal obstruction, unspecified as to partial versus complete obstruction Status: Acute Assessment and Plan: I placed NG tube myself at bedside. It went down easily and immediately returned green fluid. I explained that sbo nearly always requires NG decompression to resolve without surgery. Additionally, if surgery is required, patient will likely have an NG tube for 5-7 days and require 6 weeks to recover. Plan to follow with serial labs, plain films, exams. Hopefully will resolve as it typically does. Thank you for asking us to see this patient in consultation. (2) GERD (gastroesophageal reflux disease): Code(s): K21.9 - Gastro-esophageal reflux disease without esophagitis Status: Chronic Assessment and Plan: Troubled by this frequently. I advised she begin taking omeprazole daily once she has recovered from present illness. History of Present Illness Consult details Consult date: 11/18/22 Reason for consult: abdominal pain Requesting physician: Irene Watkins PA-C Narrative: Patient is 77 yo woman with hx of sigmoidectomy with colostomy over 10 years ago. She had subsequent colostomy closure and had complications and prolonged illness with it. Prior to those surgeries, she had a hysterectomy. Since her colostomy closure, she has had 2 episodes of small bowel obstruction both of which resolved without further surgery. Yesterday she had LLQ pain that spread throughout her abdomen and became severe. She came to the ER suspecting she had another bowel obstruction. She had vomitting in the ER too. Evaluation showed on CT scan a small bowel obstruction. She has not had an NG tube placed as yet because she had a bad experience with placement following her colostomy closure and it causes her much anxiety. Review of Systems Review of Systems: All systems reviewed & are unremarkable except as noted in HPI and below (HPI and those items listed below) Constitutional: Constitutional: Denies chills and Denies fever(s) Cardiovascular: Cardiovascular: Denies chest pain, Denies diaphoresis, Denies dyspnea and Denies paroxysmal nocturnal dyspnea Respiratory: Respiratory: Denies chest congestion, Denies cough and Denies dyspnea Integumentary/Breasts: Skin/Breast: Denies lesions and Denies rash PMFSH Past Medical History Medical History Arthritis Diabetes GERD (gastroesophageal reflux disease) Hyperlipidemia Osteoporosis Surgical History Surgical History History of arthroscopy of right knee (~2020) History of bladder surgery (~2002) History of hysterectomy (~2002) History of tonsillectomy History of total right knee replacement (~08/09/21) [place] Family History Family History Grandparent Carcinoma of colon Arthritis pain Social History Social History Smoking status: Never smoker Second hand tobacco smoke exposure: No Additional smoking assessment comments: PT DENIES ALL FORMS OF TOBACCO USE Alcohol intake: never Alcohol use details: STATES MAYBE 1 GLASS WINE/MONTH Substance use: never Substance use type: does not use Lack of Transportation: No Lack of Food: Never True Current Housing: I Have Housing Concerned About Future Housing: No Difficulty Paying Gas/Electric Bills: No Difficulty Paying for Meds: No Currently Unemployed: No Education: High School Diploma/GED Difficulty w/ Childcare or Family Care: No Living arrangements: with family Spiritual care concerns: No Meds Home Medications and Allergies Home Medications Medication Instructions Recorded Confirmed Type omeprazole 20 mg capsule,delayed 20 mg PO QAM 05/17/21
[2022-11-18 20:45] VITALS: BP 144/80; PULSE 82; RESP 16; TEMP 36.3; O2SAT 96
[2022-11-19] MEDS: DEXTROSE 5%/LACTATED RINGERS 1,000 ML 75 ML IV CONT ×2 (01:05→16:28)
[2022-11-19 04:51] VITALS: BP 145/83; PULSE 81; RESP 16; TEMP 36.2; O2SAT 97
[2022-11-19 06:36] LABS: Basophils Percent Auto 0.5 % (0.2-1.2); Eosinophils Absolute Auto 0.1 K/mm3 (0-0.3); Eosinophils Percent Auto 2.1 % (0-4.4); Hematocrit 37.7 % (37.0-47.0); Hemoglobin 12.1 g/dL (12.0-15.0); Immature Granulocyte Absolute 0.03 K/mm3 (0.00-0.031); Immature Granulocyte Percent A 0.5 % (0-0.5); Lymphocytes Percent Auto 22.5 % (18.3-44.2); Mean Corpuscular HGB Conc 32.1 g/dl (32-36); Mean Corpuscular Hemoglobin 29.5 pg (26-34); Mean Platelet Volume 10.1 fl (7.4-10.4); Monocytes Absolute Auto 0.6 K/mm3 (0.1-0.6); Neutrophils Percent Auto 64.4 % (45.5-73.1); Platelet Count Result 229 k/mm3 (150-375); Red Cell Distribution Width 12.7 % (11.5-14.5); White Blood Count 6.2 K/mm3 (4.5-10.0)
[2022-11-19 06:50] LABS: Alanine Aminotransferase 20 U/L (6-35); Albumin Level 4.3 g/dL (3.5-5.1); Alkaline Phosphatase 69 U/L (38-126); Anion Gap 7 mmol/L (8-16); Aspartate Amino Transferase 28 U/L (14-36); Bilirubin,Total 0.5 mg/dL (0.2-1.3); Blood Urea Nitrogen 16 mg/dL (7-17); Calcium 9.9 mg/dL (8.4-10.2); Carbon Dioxide 35 mmol/L (22-30); Chloride 99 mmol/L (98-107); Estimated CRCL calculation 43 ml/min; Estimated Glomerular Filt Rate > 60; Glucose 123 mg/dL (65-110); Potassium 3.9 mmol/L (3.4-5.0); Sodium 141 mmol/L (137-145)
--- NOTE | 2022-11-19 07:17 | PM.PNGS ---
Progress Note: A&P Assessment and Plan (1) SBO (small bowel obstruction): Code(s): K56.609 - Unspecified intestinal obstruction, unspecified as to partial versus complete obstruction Status: Acute Assessment and Plan: Much improved. Will get water-soluble contrast small-bowel series today. If has normal transit, can remove NG tube and start full liquids. (2) GERD (gastroesophageal reflux disease): Code(s): K21.9 - Gastro-esophageal reflux disease without esophagitis Status: Chronic Assessment and Plan: Advised taking omeprazole over the counter daily after discharge Subjective Subjective Date/Time Seen: 11/19/22 07:17 Patient reports: feels better, pain is less (Abdominal pain is gone), flatus, bowel movement (Small bowel movement) and afebrile Review of Systems Review of Systems: All systems reviewed & are unremarkable except as noted in HPI and below (HPI) Exam Const: General: comfortable and no acute distress Orientation/consciousness: patient oriented x3 GI: Inspection: normal to inspection, non-distended and scaphoid GI Palp: Yes Soft to palpation, No Tenderness to palpation present (GI), No Guarding due to palpation present (GI) and No Rebound tenderness present Auscultation: normal bowel sounds Neuro: General: patient oriented x3 and no focal motor deficits Extrem: General: no calf tenderness and no edema Psych: Affect: normal affect Insight: Good insight present (Psych) Judgement: Good judgement present (Psych) Objective Data Vital Signs Vital Signs: Vital Signs - 24 hr 11/18/22 08:00 11/18/22 14:00 11/18/22 20:45 Temperature 36.6 C 36.3 C L Pulse Rate 81 104 H 82 Respiratory Rate 16 16 16 Blood Pressure 154/96 H 144/80 H Pulse Oximetry 98 98 96 Oxygen Delivery Room Air 11/19/22 04:51 Temperature 36.2 C L Pulse Rate 81 Respiratory Rate 16 Blood Pressure 145/83 H Pulse Oximetry 97 Oxygen Delivery Intake/Output Intake/Output: Intake & Output 11/16/22 11/17/22 11/18/22 11/19/22 23:59 23:59 23:59 23:59 Intake Total 1000 Output Total 2039 160 Balance -2039 840 Meds/Results Medications: Active Medications Generic Name Dose Route Start Last Admin Trade Name Freq PRN Reason Stop Dose Admin Hydromorphone HCl 0.5 mg 11/18/22 05:00 11/18/22 06:16 Hydromorphone Hcl Inj (*Crx) 1 Mg/Ml Syr IV PUSH 0.5 mg Q3H PRN Administration Pain Rated 7-10 Dextrose/Lactated Ringer's 1,000 mls @ 75 mls/hr 11/18/22 05:00 11/19/22 01:05 Dextrose 5%/Lactated Ringers IV CONT 75 mls/hr .[id number] MARIN Administration Ondansetron HCl 4 mg 11/18/22 05:38 11/18/22 18:35 Ondansetron Inj 4 Mg/2 Ml Vial IV PUSH 4 mg Q4H PRN Administration Nausea And Vomiting Phenol 1 spray 11/18/22 14:39 11/18/22 15:31 Phenol/Sod Pheno [place] (*Bkc) MUCOUS MEM 1 spray PRN PRN Administration Sore Throat Radiology Results: ITS Impressions Abdomen/Pelvis CT 11/18/22 05:52 Impression: Suspected early or partial small bowel obstruction, with dilated small bowel loops in the left midabdomen, lateral to the descending colon. Position of small bowel loops lateral to the descending colon raises the possibility of internal transmesenteric hernia. Correlate clinically. Consider surgical consultation. Abdomen X-Ray 11/19/22 06:02 Impression: NG tube in place. Nonspecific bowel gas pattern. Labs Labs: Laboratory Results - last 24 hr 11/19/22 06:15 WBC 6.2 RBC 4.10 L Hgb 12.1 Hct 37.7 MCV 92.0 MCH 29.5 MCHC 32.1 RDW 12.7 Plt Count 229 MPV 10.1 Immature Gran % (Auto) 0.5 Neut % (Auto) 64.4 Lymph % (Auto) 22.5 [place] % (Auto) 10.0 H Eos % (Auto) 2.1 Baso % (Auto) 0.5 Lymph # (Auto) 1.40 [place] # (Auto) 0.6 Eos # (Auto) 0.1 Baso # (Auto) 0.0 Abs Immat Gran (auto) 0.03 Absolute Neuts (auto) 4.0 Absolute Nucleated RBC 0.0 Nucleated RBC % 0.0 Sodium 1
--- NOTE | 2022-11-19 13:40 | PM.IMPN ---
Progress Note: A&P Assessment and Plan (1) SBO (small bowel obstruction): Code(s): K56.609 - Unspecified intestinal obstruction, unspecified as to partial versus complete obstruction Status: Acute (2) Osteoporosis: Code(s): M81.0 - Age-related osteoporosis without current pathological fracture Status: Acute (3) Arthritis: Code(s): M19.90 - Unspecified osteoarthritis, unspecified site Status: Acute (4) GERD (gastroesophageal reflux disease): Code(s): K21.9 - Gastro-esophageal reflux disease without esophagitis Status: Chronic Plan 11/19/2022: Patient presented with abdominal pain since 1 day with associated nausea vomiting. History of partial colectomy for diverticulitis with perforation in the past. Mild leukocytosis stent K UA is negative lactate is normal CT scan abdomen pelvis with prominent small bowel measuring up to 2.8 cm with mild wall thickening. Early/partial small bowel obstruction. General surgery consulted. NG tube has been placed. With low intermittent suction. Return of bowel function today. Small-bowel x-ray plan per General surgery and to start on oral diet and removal of NG tube. Subjective Date/time seen: 11/19/22 13:40 Interval history: No overnight events. Started having bowel movement today. NG tube in place and feels better. No abdominal pain. Review of Systems Review of Systems: All systems reviewed & are unremarkable except as noted in HPI and below Exam Narrative: GENERAL: Well-appearing, well-nourished, and in no acute distress. HEAD: Normocephalic, atraumatic. NG tube in place EYES: EOMI. CHEST: Clear to auscultation. No respiratory distress. No wheezes rales or rhonchi HEART: Regular rate and rhythm. No murmur heard. Normal peripheral pulses. ABDOMEN: Normal active bowel sounds.? Patient is mildly distended, nontender No guarding EXTREMITIES: Normal range of motion. No edema. SKIN: Warm, dry, no rash. NEURO: No focal deficits. Alert and oriented x3. PSYCH: Normal mood and affect Objective Data Vital Signs Vital Signs: Vital Signs - 24 hr 11/18/22 14:00 11/18/22 20:45 11/19/22 04:51 Temperature 98 F 97.4 F L 97.1 F L Pulse Rate 104 H 82 81 Respiratory Rate 16 16 16 Blood Pressure 154/96 H 144/80 H 145/83 H Pulse Oximetry 98 96 97 Intake/Output Intake/Output: Intake & Output 11/16/22 11/17/22 11/18/22 11/19/22 23:59 23:59 23:59 23:59 Intake Total 1000 Output Total 2039 235 Balance -2039 765 Meds/Results Medications: Active Medications Generic Name Dose Route Start Last Admin Trade Name Freq PRN Reason Stop Dose Admin Hydromorphone HCl 0.5 mg 11/18/22 05:00 11/18/22 06:16 Hydromorphone Hcl Inj (*Crx) 1 Mg/Ml Syr IV PUSH 0.5 mg Q3H PRN Administration Pain Rated 7-10 Dextrose/Lactated Ringer's 1,000 mls @ 75 mls/hr 11/18/22 05:00 11/19/22 01:05 Dextrose 5%/Lactated Ringers IV CONT 75 mls/hr .[id number] MARIN Administration Ondansetron HCl 4 mg 11/18/22 05:38 11/18/22 18:35 Ondansetron Inj 4 Mg/2 Ml Vial IV PUSH 4 mg Q4H PRN Administration Nausea And Vomiting Phenol 1 spray 11/18/22 14:39 11/18/22 15:31 Phenol/Sod Pheno [place] Thomson (*Bkc) MUCOUS MEM 1 spray PRN PRN Administration Sore Throat Radiology Results: ITS Impressions Abdomen/Pelvis CT 11/18/22 05:52 Impression: Suspected early or partial small bowel obstruction, with dilated small bowel loops in the left midabdomen, lateral to the descending colon. Position of small bowel loops lateral to the descending colon raises the possibility of internal transmesenteric hernia. Correlate clinically. Consider surgical consultation. Abdomen X-Ray 11/19/22 06:02 Impression: NG tube in place. Nonspecific bowel gas pattern. Small Bowel X-Ray 11/19/22 10:44 IMPRESSION: 1. Nonobstructive bowel gas pattern. Labs Labs: Laboratory Results - last 24 hr
[2022-11-19 13:54] VITALS: BP 128/83; PULSE 85; RESP 18; TEMP 36.3; O2SAT 98
[2022-11-19 21:03] VITALS: BP 127/78; PULSE 73; RESP 16; TEMP 36.4; O2SAT 98
[2022-11-20 05:13] VITALS: BP 123/69; PULSE 70; RESP 16; TEMP 36.5; O2SAT 97
[2022-11-20 06:41] LABS: Basophils Percent Auto 0.5 % (0.2-1.2); Eosinophils Absolute Auto 0.3 K/mm3 (0-0.3); Eosinophils Percent Auto 7.2 % (0-4.4); Hematocrit 36.5 % (37.0-47.0); Hemoglobin 11.8 g/dL (12.0-15.0); Immature Granulocyte Absolute 0.01 K/mm3 (0.00-0.031); Immature Granulocyte Percent A 0.2 % (0-0.5); Lymphocytes Absolute Auto 1.29 K/mm3 (0.9-3.2); Lymphocytes Percent Auto 31.9 % (18.3-44.2); Mean Corpuscular HGB Conc 32.3 g/dl (32-36); Mean Corpuscular Hemoglobin 29.5 pg (26-34); Mean Corpuscular Volume 91.3 fl (80-100); Monocytes Absolute Auto 0.4 K/mm3 (0.1-0.6); Monocytes Percent Auto 8.9 % (2.6-8.5); Neutrophils Absolute Auto 2.1 K/mm3 (1.3-6.7); Neutrophils Percent Auto 51.3 % (45.5-73.1); Platelet Count Result 198 k/mm3 (150-375); Red Cell Distribution Width 12.5 % (11.5-14.5); White Blood Count 4.1 K/mm3 (4.5-10.0)
[2022-11-20 06:53] LABS: Alanine Aminotransferase 18 U/L (6-35); Alkaline Phosphatase 61 U/L (38-126); Anion Gap 4 mmol/L (8-16); Aspartate Amino Transferase 29 U/L (14-36); Bilirubin,Total 0.7 mg/dL (0.2-1.3); Blood Urea Nitrogen 15 mg/dL (7-17); Calcium 9.1 mg/dL (8.4-10.2); Carbon Dioxide 36 mmol/L (22-30); Chloride 99 mmol/L (98-107); Estimated CRCL calculation 43 ml/min; Estimated Glomerular Filt Rate > 60; Glucose 98 mg/dL (65-110); Potassium 3.6 mmol/L (3.4-5.0); Sodium 139 mmol/L (137-145)
[2022-11-20 14:00] VITALS: BP 143/80; PULSE 99; RESP 14; TEMP 36.8; O2SAT 98
--- NOTE | 2022-11-20 15:14 | PM.DS ---
DS: Admitting Diagnosis Discharge Date 11/20/22 Admitting Diagnosis small bowel obstruction DS: Discharge Diagnosis Discharge Diagnosis (1) SBO (small bowel obstruction): Code(s): K56.609 - Unspecified intestinal obstruction, unspecified as to partial versus complete obstruction Status: Acute (2) Osteoporosis: Code(s): M81.0 - Age-related osteoporosis without current pathological fracture Status: Acute (3) Arthritis: Code(s): M19.90 - Unspecified osteoarthritis, unspecified site Status: Acute (4) GERD (gastroesophageal reflux disease): Code(s): K21.9 - Gastro-esophageal reflux disease without esophagitis Status: Chronic DS: Summary Hospital Course Hospital Course: this is a 77-year-old female past medical history of partial colectomy, small-bowel obstruction x2 and patient present to the ED on 11/18/2022 due to acute onset of abdominal pain. CT abdomen pelvis reveals small bowel obstruction and General surgery was consulted. In the past patient did not require surgical intervention and she was able to resolve small-bowel obstruction with NG tube decompression and bowel rest. IV fluids started. Patient however respond able small bowel contrast series that did not reveal an acute obstruction. NG tube was removed and her diet was slowly advanced. She tolerated her diet well. bowel function returned. Discussed case with General surgeon he has cleared the patient for discharge. Her labs and vital signs are stable and she is medically clear for discharge. Time Spent with Patient Time attestation: Total time spent providing and/or coordinating discharge services: Exam Narrative: GENERAL: Comfortable, no acute distress HENMT: moist mucous membranes EYES: EOM intact b/l NECK: no lymphadenopathy RESPIRATORY: clear to auscultation CARDIO: RRR GI: soft, nontender, bowel sounds present SKIN: no rashes EXTREMITIES: no edema, redness or tenderness DS: Data Data Completed and Pending Labs on day of discharge: Labs from last 24 hours 11/20/22 06:34 WBC 4.1 L RBC 4.00 L Hgb 11.8 L Hct 36.5 L MCV 91.3 MCH 29.5 MCHC 32.3 RDW 12.5 Plt Count 198 MPV 10.0 Immature Gran % (Auto) 0.2 Neut % (Auto) 51.3 Lymph % (Auto) 31.9 [place] % (Auto) 8.9 H Eos % (Auto) 7.2 H Baso % (Auto) 0.5 Lymph # (Auto) 1.29 [place] # (Auto) 0.4 Eos # (Auto) 0.3 Baso # (Auto) 0.0 Abs Immat Gran (auto) 0.01 Absolute Neuts (auto) 2.1 Absolute Nucleated RBC 0.0 Nucleated RBC % 0.0 Sodium 139 Potassium 3.6 Chloride 99 Carbon Dioxide 36 H Anion Gap 4 L BUN 15 Creatinine 0.80 Estim Creat Clear Calc 43 Estimated GFR > 60 Glucose 98 Calcium 9.1 Magnesium 2.0 Total Bilirubin 0.7 AST 29 ALT 18 Alkaline Phosphatase 61 Total Protein 7.0 Albumin 4.0 Discharge Plan Discharge Attending physician on discharge: Rhonda Marlow Consulting providers: Aurelio Reinoso; Irene Watkins Discharging Clinician: Laura Newell Patient Disposition: Home, Self-Care Activity: no preference Diet: low fiber Discharge Instructions: Medications: Omeprazole 20 mg Discharge disposition: Take medications as prescribed Monitor blood pressures Avoid social areas, you wear a mask when in social settings Encouraged to continue with yearly vaccinations Return to the emergency department if he developed sudden shortness of breath, chest pain, nausea, vomiting, upset stomach or intractable diarrhea Return to the emergency department if you develop fever greater than 100.4 Follow-up with the primary care physician within 1-2 weeks Thank you for [facility] for your healthcare needs Patient Instructions: Antibiotic Form Stand Alone Forms: General Discharge Information Follow-up/Referrals: PHYSICIAN NOT ON STAFF,NONSTAFF [Primary Care Provider] - Discharge Medications: Continued omeprazole 20 mg capsule,delay
--- NOTE | 2022-11-20 16:01 | PM.PNGS ---
Progress Note: A&P Assessment and Plan (1) SBO (small bowel obstruction): Code(s): K56.609 - Unspecified intestinal obstruction, unspecified as to partial versus complete obstruction Status: Resolved Assessment and Plan: Patient would like to go home. I spoke with the hospitalist. I think she can be discharged on regular diet. She likes to eat peanuts and I cautioned her not to eat a large amount of these at 1 time. Otherwise her diet really does not play much of a role in small-bowel obstruction. She does have some intermittent problems with constipation and I suggested trying Metamucil a tbsp in 6-8 oz of any liquid daily. She does not need to follow up with me after discharge. I would not recommend operation unless she gets small-bowel obstruction that much more frequent, shorter intervals or the bowel obstruction does not resolve. (2) GERD (gastroesophageal reflux disease): Code(s): K21.9 - Gastro-esophageal reflux disease without esophagitis Status: Chronic Assessment and Plan: Patient will go home on omeprazole for pretty significant reflux symptoms and take it daily. Subjective Subjective Date/Time Seen: 11/20/22 16:01 Patient reports: no new complaints, feels better, tolerating liquids well, bowel movement and afebrile Review of Systems Review of Systems: All systems reviewed & are unremarkable except as noted in HPI and below (HPI) Exam Const: General: comfortable and no acute distress Orientation/consciousness: patient oriented x3 GI: Inspection: normal to inspection and non-distended GI Palp: Yes Soft to palpation, No Tenderness to palpation present (GI), No Guarding due to palpation present (GI) and No Rebound tenderness present Neuro: General: patient oriented x3 and no focal motor deficits Extrem: General: no calf tenderness and no edema Psych: Affect: normal affect Insight: Good insight present (Psych) Judgement: Good judgement present (Psych) Objective Data Vital Signs Vital Signs: Vital Signs - 24 hr 11/19/22 21:03 11/20/22 05:13 11/20/22 08:00 Temperature 36.4 C L 36.5 C Pulse Rate 73 70 Respiratory Rate 16 16 Blood Pressure 127/78 123/69 Pulse Oximetry 98 97 Oxygen Delivery Room Air 11/20/22 14:00 Temperature 36.8 C Pulse Rate 99 Respiratory Rate 14 Blood Pressure 143/80 H Pulse Oximetry 98 Oxygen Delivery Intake/Output Intake/Output: Intake & Output 11/17/22 11/18/22 11/19/22 11/20/22 23:59 23:59 23:59 23:59 Intake Total 2472 480 Output Total 2040 635 Balance -0 1837 480 Meds/Results Medications: Active Medications Generic Name Dose Route Start Last Admin Trade Name Freq PRN Reason Stop Dose Admin Hydromorphone HCl 0.5 mg 11/18/22 05:00 11/18/22 06:16 Hydromorphone Hcl Inj (*Crx) 1 Mg/Ml Syr IV PUSH 0.5 mg Q3H PRN Administration Pain Rated 7-10 Ondansetron HCl 4 mg 11/18/22 05:38 11/18/22 18:35 Ondansetron Inj 4 Mg/2 Ml Vial IV PUSH 4 mg Q4H PRN Administration Nausea And Vomiting Phenol 1 spray 11/18/22 14:39 11/18/22 15:31 Phenol/Sod Pheno [place] Thomson (*Bkc) MUCOUS MEM 1 spray PRN PRN Administration Sore Throat Radiology Results: ITS Impressions Abdomen/Pelvis CT 11/18/22 05:52 Impression: Suspected early or partial small bowel obstruction, with dilated small bowel loops in the left midabdomen, lateral to the descending colon. Position of small bowel loops lateral to the descending colon raises the possibility of internal transmesenteric hernia. Correlate clinically. Consider surgical consultation. Abdomen X-Ray 11/19/22 06:02 Impression: NG tube in place. Nonspecific bowel gas pattern. Small Bowel X-Ray 11/19/22 10:44 IMPRESSION: 1. Nonobstructive bowel gas pattern. Labs Labs: Laboratory Results - last 24 hr 11/20/22 06:34 WBC 4.1 L RBC 4.00 L Hgb 11.8 L Hct 36.5 L MCV 91.3 MCH 29.5 MCHC
== END 2022-11-20 16:31 | disposition home or self-care (01) | DRG 390 ==
LOC: ANHED 11-18 01:31 → ANH3MEDSUR 11-18 01:45
PROVIDERS: Internal Medicine; Admitting Provider Internal Medicine; Emergency Provider Physician Assistant; Visit Provider Internal Medicine Critical Care Medicine
DX: K56.609 Unspecified intestinal obstruction, unspecified as to partial versus complete obstruction (principal); M81.0 Age-related osteoporosis without current pathological fracture; M19.90 Unspecified osteoarthritis, unspecified site; K21.9 Gastro-esophageal reflux disease without esophagitis; E11.9 Type 2 diabetes mellitus without complications; E78.5 Hyperlipidemia, unspecified; Z96.651 Presence of right artificial knee joint; D72.829 Elevated white blood cell count, unspecified; Z90.710 Acquired absence of both cervix and uterus; Z79.82 Long term (current) use of aspirin
CPT/HCPCS: 36415; 74018; 74177; 74250; 80053; 81003; 83605; 83690; 83735; 85025; 96374; 96375; 96376; 99285; A9270; G0378; J1170; J2270; J2405; J7030; J7121; Q9967

== ENCOUNTER → 2023-04-25 11:13 | Outpatient (CLI) | payer MEDICARE, SELFPAY ==
--- NOTE | ~2023-04-25 | MM_ITS ---
EXAMINATION: MM screening deyanira BI w germain HISTORY: Screening TECHNIQUE: Craniocaudal and mediolateral oblique 3-D tomosynthesis images were obtained and synthetic 2-D images were generated. CAD analysis was submitted and interpreted. COMPARISON: Comparison to multiple prior studies sequentially, with oldest reviewed study dated 11/16. BREAST PARENCHYMAL COMPOSITION: The breasts are heterogeneously dense, which may obscure small masses FINDINGS: There is developing asymmetry in the central aspect of the right breast. The left breast is stable without evidence for malignancy. IMPRESSION: 1. Developing right breast asymmetries. 2. Additional mammographic views and possible breast ultrasound are recommended. BI-RADS Category 0: Incomplete: Needs additional imaging evaluation. Reviewed, dictated and finalized at location A. [employer] IMPRESSION: 1. Developing right breast asymmetries. 2. Additional mammographic views and possible breast ultrasound are recommended . BI-RADS Category 0: Incomplete: Needs additional imaging evaluation.
== END ==
DX: Z12.31 Encounter for screening mammogram for malignant neoplasm of breast (principal); R92.8 Other abnormal and inconclusive findings on diagnostic imaging of breast
CPT/HCPCS: 77063; 77067

== ENCOUNTER → 2023-05-21 08:27 | Outpatient (CLI) | payer MEDICARE, SELFPAY ==
--- NOTE | ~2023-05-21 | MMUS_ITS ---
EXAMINATION: MM diagnostic deyanira RT w germain, US breast RT complete HISTORY: Follow-up right breast asymmetry TECHNIQUE: Additional 3-D tomosynthesis images of the right breast were performed and synthetic 2-D i mages were generated. CAD analysis was submitted and interpreted. High resolution complete right [facility]ena st ultrasound was performed. COMPARISON: Comparison to multiple prior studies sequentially, with oldest reviewed study dated 11/16. BREAST PARENCHYMAL COMPOSITION: The breasts are heterogeneously dense, which may obscure small masses FINDINGS: MAMMOGRAPHIC FINDINGS: Focal asymmetry in the upper central aspect of the right breast is unchanged. No discrete mass or arc hitectural distortion. No suspicious calcifications. ULTRASOUND: Complete US of all 4 quadrants of the right breast and retroareolar region was reviewed. At 6:00, 3.5 cm from the nipple there is a complex hypoechoic area measuring up to 1.4 cm with heterogeneous echo texture and internal vascularity which is seen on longitudinal images only. No discrete mass identifi ed on transverse images suggesting heterogeneous fibroglandular tissue. There is a small internal 3 m m hypoechoic lesion at this location with no definitive posterior features or internal vascularity. IMPRESSION: 1. Probable benign findings of the right breast. 2. Recommend 6 month follow-up diagnostic right mammogram and ultrasound. BI-RADS category 3, probably benign findings. Reviewed, dictated and finalized at location A. UME SPECIALIST IMPRESSION: 1. Probable benign findings of the right breast. 2. Recommend 6 month follow-up diagnostic right mammogram and ultrasound. BI-RADS category 3, probably benign findings.
== END ==
DX: R92.8 Other abnormal and inconclusive findings on diagnostic imaging of breast (principal)
CPT/HCPCS: 76641; 77061; 77065; G0279

== ENCOUNTER 2023-08-13 11:00 | Outpatient (RCR) | payer MEDICARE, SELFPAY ==
--- NOTE | 2023-07-03 09:57 | PTOPEVAL1 ---
Assessment and note entered by Ben Rivera Evaluation Information Assessment Status Evaluation Diagnosis chronic bilateral low back pain Onset 01/03/23 Subjective Information Pt. reports that her low back pain began around January. She reports she was caring for her sister after hip replacement and frequently lifting a wc. She states that the pain has worsened over the recent months. She describes pain going across the low back, however no pain radiating into the lower extremity. She reports pain is worsened with going up and down steps, sitting for long periods of time and getting out of a chair. She reports she was active with pickleball prior to her onset of pain, but cannot participate in pickleball currently. she states that she is not currently participating in any formal exercise. She reports she is able to complete most IADL's, however much slower with pain, compared to prior to pain onset. She reports that her goal is to return to playing pickleball and decrease her back pain. Reported Pain Level Pain Score 4: Self Report Assessment PT Clinical Summary Pt. is a 77 year old female who enters the clinic with vertebrogenic low back pain localized to the lumbar spine. She presents with proximal l.e. weakness, impaired gait, impaired postural awareness, pain and functional decline. Continued skilled PT is indicated in order to improve these areas allow for improved comfort with IADL performance. Plan of Care Interventions Electrical Stimulation,Hot Pack/Cold Pack,Manual Therapy,Neuro Re-education,Patient/Caregiver Educati,Therapeutic Activities,Therapeutic Exercise PT Services Indicated Yes Treatment Frequency and 2x/week x 10 visits Duration These treatments will address the objective and functional deficits as defined above. The patient will be advanced safely and appropriately in order for the patient to progress towards his/her prior level of function. Additional exercises will be introduced and as well as a comprehensive home exercise program upon discharge, if needed, ?to ensure carryover of functional gains achieved in the clinic. This treatment plan has been reviewed and agreement upon by the patient.
--- NOTE | 2023-07-03 09:58 | OPREHPOC ---
Outpatient Therapy Plan of Care This is a Multidisciplinary Plan of Care that may contain components documented by all disciplines (PT, OT, and ST.) PT Problem 1 PT Problem #1 Knowledge Deficit PT Goal 1 Goal Independent with a HEP addressing trunk mobility and core strength. Target Visit 2 PT Problem 2 PT Problem #2 Impaired Flexibility PT Goal 1 Goal -Pt. will present at less than 10 degrees from full knee extension on right and left with the 90/ 90 test -Pt. will present with minimal to no restriction with passive hip extension movement due to hip flexor tightness. Target Visit 5 PT Problem 3 PT Problem #3 Impaired Functional Mobil PT Goal 1 Goal Pt. will demonstrate ability to return to normal recreational activities with 3/10 pain at worst, including pickleball. Pt. will decrease LEFS score to less than 8% limitation indicating significant functional improvement. Target Visit 10 PT Problem 4 PT Problem #4 Pain PT Goal 1 Goal Pt. will report pain levels at 3/10 at worst with all functional activities. Target Visit 10
--- NOTE | 2023-07-17 11:55 | PCPTNOTE ---
Pt cancelled due to illness.
--- NOTE | 2023-08-13 11:46 | PTOPDC ---
Assessment and note entered by Ben Rivera Evaluation Information Assessment Status Discharge Diagnosis chronic bilateral low back pain Onset 01/03/23 Subjective Information Pt. reports that her pain is much less intense. She states that pain levels have been very low for several days. She states that she will get increases in pain, but intense pain moments are very infrequent and much less intense. She states that she will be leaving for [place] next week for a long stay. She reports that she will continue with her HEP and is ready for discharge Reported Pain Level Pain Score 0: Self Report Assessment PT Clinical Summary Pt. has met all goals established at the initial evaluation. She is independent with a comprehensive HEP and will be discharged from our care at this time. Plan of Care PT Services Indicated No
== END 2023-08-13 12:45 | disposition home or self-care (01) ==
LOC: ANHPT 11:00
DX: M54.50 Low back pain, unspecified (principal); G89.29 Other chronic pain
CPT/HCPCS: 97110; 97161; 97530

== ENCOUNTER 2024-02-12 12:45 | Outpatient (CLI) | payer MEDICARE, SELFPAY ==
--- NOTE | 2024-02-12 14:22 | ECG_ITS ---
Test Date: 2024-02-12 14:25:36 Measurements Intervals [place] Rate: 84 P: 46 WY: 165 QRS: 64 QRSD: 145 T: 19 QT: 375 QTc: 445 Interpretive Statements SINUS RHYTHM RIGHT BUNDLE BRANCH BLOCK [120+ ms QRS DURATION, UPRIGHT V1, 40+ ms S IN I/aVL/V4/V5/V6] ABNORMAL ELECTROCARDIOGRAM No previous ECG available for comparison Electronically Signed On 02-12-2024 16:13:05 CDT by Ben Leal M.D.
== END 2024-02-12 12:46 | disposition home or self-care (01) ==
PROVIDERS: PCP Internal Medicine Endocrinology, Diabetes & Metabolism; Visit Provider Orthopaedic Surgery
DX: Z01.818 Encounter for other preprocedural examination (principal); E78.5 Hyperlipidemia, unspecified; I45.10 Unspecified right bundle-branch block; R94.31 Abnormal electrocardiogram [ECG] [EKG]
CPT/HCPCS: 93005

== ENCOUNTER 2024-02-19 00:28 | Day surgery (SDC) | payer MEDICARE, SELFPAY ==
[2024-02-12 10:13] VITALS: BMI 19.8
--- NOTE | 2024-02-12 10:22 | PC.NURSE ---
Report to the Outpatient Waiting Room, entrance under the green pavilion located off [facility], at time _1130_ on date _[id number]_. Planned Procedure Time: _130pm_.? Time changes happen often and if your time is changed the preop area will call you the afternoon before. - You and your visitor will be asked to self-screen and do not enter if you have any COVID symptoms. Please call surgeon if you need to reschedule. - A mask is optional within the hospital at this time. Patients may have clear liquids (water, carbonated beverages, clear teas, apple juice) until 3 hours prior to surgery with a maximum of 20 ounces. - No food from midnight until time of surgery and no smoking Take only the following medications with a SIP of water on the morning of surgery: ___Acetaminophen as needed for pain. DO NOT STOP ANY OF YOUR OTHER PRESCRIPTION MEDICATIONS PRIOR TO SURGERY EXCEPT THE FOLLOWING Medications to discontinue per physician ___All vitamins Date to take last [id number] Please no make-up, nail kazakh, hairspray, perfume, deodorant, or body powder the day of surgery.? No jewelry (including any body piercings) or valuables the day of surgery, leave them at home.? Please take a shower or bath the night before, or the morning of, surgery with an antibacterial soap.? Wear comfortable, loose fitting clothing.? - Jewelry must be removed prior to entering the operating room.? Rings and piercings that are not removed may be cut off. - The hospital will not accept responsibility for valuables.? - Please leave all valuables, including medications, at home the day of surgery. If you are going home after surgery, a licensed mail truck driver must drive you home.? - NO public transportation without another adult if you receive anesthesia. - We recommend that an adult stay with you for 24 hours following discharge. - We also recommend that you do not drive, make important decision, drink alcoholic beverages, or take any drugs that were not prescribed by your health care provider for at least 24 hours after your discharge time. Follow any additional instructions given to you from your surgeon. Telephone instructions given to ___Mary__and asked if any additional questions and then verbalized understanding. Patient advised to call surgeon office or pre surgery nurse liaison [phone] if any additional questions.
[2024-02-19] VITALS (9 sets, daily range): BP systolic 112–145; BP diastolic 67–83; PULSE 66–98; RESP 13–20; TEMP 36.6–37.3; O2SAT 94–100
--- NOTE | 2024-02-19 11:29 | WPDANESEPPF ---
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 Patient Data Age: 78 Gender: F Height: 1.57 m Weight: 49 kg Allergies Allergy/AdvReac Type Severity Reaction Status Date / Time metoclopramide [From Reglan] AdvReac Agitated Verified 02/12/24 10:11 Home Medications Medication Instructions Recorded Confirmed Type omeprazole 20 mg capsule,delayed 20 mg PO QAM 05/17/21 02/12/24 History release acetaminophen 500 mg tablet 1,000 mg PO Q6H PRN Pain 07/18/21 02/12/24 History cholecalciferol (vitamin D3) 50 50 mcg PO QAM 07/18/21 02/12/24 History mcg (2,000 unit) capsule cyanocobalamin (vitamin B-12) 1,000 mcg PO QAM 07/18/21 02/12/24 History 1,000 mcg capsule ibuprofen 200 mg tablet 800 mg PO Q6H PRN Pain 07/18/21 02/12/24 History multivitamin 1 tablet PO QAM 07/18/21 02/12/24 History alprazolam 0.25 mg tablet 0.25 mg PO DAILY PRN Insomnia 02/11/24 02/12/24 History rosuvastatin 5 mg tablet (Crestor) 5 mg PO DAILY 02/11/24 02/12/24 History Patient hx anesthesia problems: none Family hx anesthesia problems: none Results Review: All pre-operative results and documents have been reviewed as part of the pre-operative evaluation. [facility] Past Medical History Medical History Arthritis Diabetes GERD (gastroesophageal reflux disease) Hyperlipidemia Osteoporosis Surgical History Surgical History History of arthroscopy of right knee (~2020) History of bladder surgery (~2002) History of hysterectomy (~2002) History of tonsillectomy History of total right knee replacement (~08/09/21) Conformis Family History Family History Grandparent Carcinoma of colon Arthritis pain Social History Social History Smoking status: Never smoker Second hand tobacco smoke exposure: No Additional smoking assessment comments: PT DENIES ALL FORMS OF TOBACCO USE Alcohol intake: current Alcohol use details: STATES MAYBE 1 GLASS WINE/MONTH Substance use: never Substance use type: does not use Do You Feel Safe in your Home?: Yes Lack of Transportation: No Lack of Food: Never True Current Housing: I Have Housing Concerned About Future Housing: No Difficulty Paying Gas/Electric Bills: No Difficulty Paying for Meds: No Currently Unemployed: No Education: High School Diploma/GED Difficulty w/ Childcare or Family Care: No Living arrangements: with family Spiritual care concerns: No Anes - Eval Final PreProcedure Day of Procedure 02/19/24 11:29 Patient weight: normal Heart: regular rate and rhythm Lungs: clear to auscultation Airway: Mallampati scale class II Neurological: alert and oriented Last oral intake: >/= 8 hours ASA classification: III Emergent: no Anesthetic plan: proceed Anesthesia type and monitoring: general LMA Results Review: All pre-operative results and documents have been reviewed as part of the pre-operative evaluation. Informed Consent: The patient's anesthetic plan and its attendant risks and benefits were discussed with the patient/family/POA. Questions were solicited and answers provided to the satisfaction of the patient/family/POA.
--- NOTE | 2024-02-19 12:09 | WPDHPUPDATE1 ---
History and Physical Update Update Date/Time: 02/19/24 12:09 History and Physical has been reviewed, including an updated exam of the patient. There are NO changes in the patient's condition. Risks, benefits, and alternatives have been discussed and questions answered. Patient agrees to proceed with procedure.
[2024-02-19] MEDS: ACETAMINOPHEN 500 MG TABLET 1000 MG PO (12:15)
[2024-02-19] MEDS: LACTATED RINGERS 1,000 ML 30 ML IV CONT ×2 (12:15→13:40)
[2024-02-19] MEDS: KETOROLAC 15 MG/ML VIAL (*BKC) IV PUSH (12:15)
[2024-02-19] MEDS: ceFAZolin 2 GM/D5W 50 ML 2 GM/50 ML BAG IVPB (12:21)
[2024-02-19] MEDS: BUPIVACAINE/EPINEPHRINE 0.5% 50 ML VIAL 30 ML INFILTRATE (12:42)
[2024-02-19] MEDS: fentaNYL CITRATE INJ (*CRX) 100 MCG/2 ML VIAL 25 MCG IV PUSH ×2 (14:05→14:08)
--- NOTE | 2024-02-19 16:01 | P.OP_ITS ---
Procedure Note - Detailed Date of Procedure 02/19/24 Pre-op Diagnosis Patellofemoral arthritis right knee, status post total knee arthroplasty. Post-op Diagnosis Same Procedure Performed Patellar resurfacing arthroplasty status post total knee arthroplasty, right. Surgeon Johnathan Ruiz MD Vegetable Cook Melissa Arthur PA-C Anesthesia General Indications Persistent anterior knee pain and patella cartilage wear status post total knee arthroplasty. Findings Significant softening and erosion around the periphery of the patella with significant hypertrophic soft tissue. Mild inflammatory fluid without signs of infection. No significant synovitis. Good stability and balance throughout the range of motion. Excellent patellar tracking. Description of Procedure Preoperative antibiotics were given. General anesthetic administered. The knee was prepped and draped in the usual sterile fashion with a well-padded tourniquet. The limb was exsanguinated and the tourniquet was inflated to 275 mmHg during the procedure. The previous anterior midline incision was opened in the central aspect. This was a high mid vastus type exposure. The patella was everted. There was extensive soft tissue overgrowth around the periphery. The cartilage was softened. There was some scarring around the retinacular area and fat pad. Minimal inflammatory joint fluid. The remaining implants appeared normal. Slight increased posterior drawer with a firm endpoint. No medial or lateral instability. Patella was measured at 24 mm. It was cut for resurfacing. After careful assessment of the optimum patella positioning and size, the lug holes were drilled. Combined thickness was 24 mm with the patella trial. The 35 mm asymmetric button fit very nicely. The periarticular tissues were gently debrided and the lateral soft tissue was denervated with electrocautery. The bone was copiously irrigated and patella prepared for cementation. The real patella button was cemented into position and excess cement carefully removed. The patella button was clamped into place until the cement was hardened. The tourniquet was released. Meticulous hemostasis maintained. Estimated blood loss 20 mL. The wound was closed in layers with interrupted 1. Vicryl suture followed by running 1. Stratafix suture. Additional 1. Vicryl suture in the subcutaneous tissue followed by running 2-0 a nd running 3-0 Stratafix suture. The knee was flexed and Steri-Strips applied. The Mepilex dressing was applied and a soft padding with an Isaias wrap was placed. The patient was extubated and brought to the recovery room in stable condition. Postoperatively she did very well without any complications. Implants Conformis 35 mm asymmetric patella button all-polyethylene. One batch of high viscosity quick set Biomet cement. Estimated Blood Loss 20 Drains No Packing No Pathology None sent Complications No immediate complications Condition Stable Disposition PACU [facility] Billing Surgery - Charge Forward: Surgery Billing
--- NOTE | 2024-02-19 16:27 | SUR.PHASEI ---
JUAN Kline notified of patient not having post-op xrays taken. Per PA, she is unsure if they are actually necessary and will check with Dr. Ruiz and have them taken at follow up if needed.
== END 2024-02-19 15:35 | disposition home or self-care (01) ==
PROVIDERS: PCP Internal Medicine Endocrinology, Diabetes & Metabolism; Visit Provider Orthopaedic Surgery
PROC: (CPT 27447; principal; 2024-02-19 13:30)
DX: M22.2X1 Patellofemoral disorders, right knee (principal); M79.89 Other specified soft tissue disorders; E78.5 Hyperlipidemia, unspecified; E11.9 Type 2 diabetes mellitus without complications; K21.9 Gastro-esophageal reflux disease without esophagitis; M81.0 Age-related osteoporosis without current pathological fracture; Z79.1 Long term (current) use of non-steroidal anti-inflammatories (NSAID); Z98.890 Other specified postprocedural states; Z96.651 Presence of right artificial knee joint; Z80.0 Family history of malignant neoplasm of digestive organs
CPT/HCPCS: 27438; A9270; C1713; C1776; J0690; J1100; J1171; J1885; J2405; J2704; J3010; J7120

== ENCOUNTER 2024-04-06 12:17 | Outpatient (CLI) | payer MEDICARE, SELFPAY ==
--- NOTE | ~2024-04-06 | XR_ITS ---
XR knee RT 3V 04/06/2024 12:47 Indication: Post procedure right knee arthroplasty Procedure: 3 views right knee Comparison: 11/26/2023 and 10/16/2022 Findings: There is a right total knee arthroplasty. There is a small knee effusion. Prosthesis well s eated. No fracture or subluxation. No foreign bodies. Impression: 1: Small knee effusion. Reviewed, dictated and finalized at location B. UTATIONAL THEORY SCIENTIST Impression: 1: Small knee effusion.
== END 2024-04-06 12:18 | disposition home or self-care (01) ==
PROVIDERS: PCP Internal Medicine Endocrinology, Diabetes & Metabolism; Visit Provider Orthopaedic Surgery
DX: M25.461 Effusion, right knee (principal); Z98.890 Other specified postprocedural states
CPT/HCPCS: 73562